=== PATIENT | female | born 1965 | race Caucasian/White ===

== ENCOUNTER 2017-02-06 20:09 | Emergency (ER) | payer MEDICAID ==
--- NOTE | 2017-02-06 21:14 | EDM.PDOC ---
[id number] 4d HEART ISSUES Time Seen by Provider: 02/06/17 21:00 Source of Information: Reports: Patient, EMS, Family History Limitations: Reports: No Limitations - History of Present Illness INITIAL COMMENTS - FREE TEXT/NARRATIVE: 51-year-old female with diabetes and known coronary disease has had an very stressful last 48 hours, her "best friend" suddenly yesterday, and her uncle was involved in a car accident today and was killed. Tonight she was feeling stressed out, has a long history of stress and PTSD and developed some right-sided chest discomfort. She took a nitroglycerin and 3 baby aspirins and it didn't help so she called the ambulance. EMS arrived and found her hyperventilating, anxious, and gave her a fourth aspirin and transferred her to the emergency room. An EKG in route was normal. She now has settled down and is feeling better. Continues to be tearful. She's also had some right-sided flank discomfort, some paresthesias the right leg and some pain with breathing. Onset: Gradual - Related Data Allergies Allergy/AdvReac Type Severity Reaction Status Date / Time acetaminophen [From Vicodin] Allergy Hives Verified 02/06/17 20:27 codeine Allergy Hives Verified 09/28/15 22:08 hydrocodone [From Vicodin] Allergy Hives Verified 02/06/17 20:27 hydromorphone Allergy Delusions Verified 02/06/17 20:27 lisinopril Allergy Swelling Verified 02/06/17 20:27 morphine Allergy Hives Verified 09/28/15 22:08 nystatin Allergy Hives Verified 09/28/15 22:08 ropinirole Allergy Pain Verified 09/28/15 22:08 simvastatin Allergy Hives Verified 09/28/15 22:08 Home Meds: Home Meds Albuterol [Proventil Neb Soln] 09/28/15 [History] Aspirin 09/28/15 [History] Azelastine [Optivar 0.05% Ophth Soln] 09/28/15 [History] Calcium Carbonate/Vitamin D3 [Calcium 600 + Vit D 400 Tablet] 09/28/15 [History ] Clopidogrel [Plavix] 09/28/15 [History] Ferrous Sulfate 09/28/15 [History] Fluconazole [Diflucan] 09/28/15 [History] Fluticasone Propionate [Flovent] 09/28/15 [History] Insulin Aspart [Novolog Flexpen] 09/28/15 [History] Insulin Glarg,Human.Rec.Analog [Lantus Solostar] 09/28/15 [History] Lisinopril 09/28/15 [History] Loratadine [Claritin] 09/28/15 [History] Metoprolol Succinate 09/28/15 [History] Multivit-Min/FA/Lycopene/Lut [Certavite Sr-Antioxidant Tab] 09/28/15 [History] Olopatadine [Patanol 0.1% Ophth Soln] 09/28/15 [History] Omeprazole 09/28/15 [History] Oseltamivir Phosphate [Tamiflu] 09/28/15 [History] Prazosin [Minpress] 09/28/15 [History] Primidone [Mysoline] 09/28/15 [History] Terbinafine [LamISIL AT 1% Crm] 09/28/15 [History] Vit D3 & K/Berberine HCl/Hops [Ostera] 09/28/15 [History] atorvaSTATin [Lipitor] 09/28/15 [History] metFORMIN [Glucophage] 09/28/15 [History] Past Medical History HEENT History: Reports: Sinusitis Cardiovascular History: Reports: CAD, Heart Murmur, High Cholesterol, Hypertension, NE, Other (See Below) Other Cardiovascular History: palpitations Respiratory History: Reports: Asthma, Sleep Apnea, Other (See Below) Other Respiratory History: dyspnea. c-pap Gastrointestinal History: Reports: GERD, Other (See Below) Other Gastrointestinal History: chronic right lower quad pain. chronic right upper quad pain Genitourinary History: Reports: Urinary Incontinence, UTI, Recurrent Musculoskeletal History: Reports: Back Pain, Chronic, Fibromyalgia, Neck Pain, Chronic, Osteoarthritis, Other (See Below) Other Musculoskeletal History: Left carpal tunnel syndrome. chronic pain. Ulnar neuropathy left elbow Neurological History: Reports: Neuropathy, Diabetic, TIA, Other (See Below) Other Neuro History: tremor essential Psychiatric History: Reports: Addiction, Anxiety, Depression, Panic Attack, PTSD Other Psychiatric History: agoraphobia. social phbia Endocrine/Metabolic History: Reports: Diabetes, Type II, Obesity/BMI 30+ Hematologic History: Reports: Iron Deficiency Dermatologic History: Reports: Psoriasis - Past Surgical History HEENT Surgical History: Reports: Adenoidectomy, Myringotomy w Tube(s), Polypectomy, Tonsillectomy Cardiovascular Surgical History: Reports: Coronary Artery Stent, Percutaneous Transluminal Angioplasty GI Surgical History: Reports: Appendectomy, Cholecystectomy Female Surgical History: Reports: Section, Tubal Ligation Musculoskeletal Surgical History: Reports: Arthroscopic Knee, Other (See Below) Other Musculoskeletal Surgeries/Procedures:: Carpal tunnel release Social & Family History - Tobacco Use Smoking Status *Q: Current Every Day Smoker Years of Tobacco use: 30 Packs/Tins Daily: 1 - Caffeine Use Caffeine Use: Reports: Soda - Recreational Drug Use Recreational Drug Use: Yes Recreational Drug Type: Reports: Marijuana/Hashish ED ROS GENERAL - Review of Systems Review Of Systems: See Below Constitutional: Denies: Fever, Chills Respiratory: Denies: Shortness of Breath Cardiovascular: Reports: Chest Pain GI/Abdominal: Reports: Abdominal Pain (Right sided, intermittent) Musculoskeletal: Reports: Back Pain Neurological: Reports: Paresthesia (Paresthesias of the lateral right leg and hip) Psychiatric: Reports: Anxiety, Depression ED EXAM, GENERAL - Physical Exam Exam: See Below Exam Limited By: No Limitations General Appearance: Alert, No Apparent Distress, Anxious Eye Exam: Bilateral Eye: EOMI, PERRL Throat/Mouth: Normal Inspection Respiratory/Chest: No Respiratory Distress, Lungs Clear, Other (Patient does have palpation tenderness of the right lateral chest) Cardiovascular: Regular Rate, Rhythm GI/Abdominal: Soft, Non-Tender Neurological: Alert, No Motor/Sensory Deficits Psychiatric: Anxious, Tearful Skin Exam: Warm, Dry Course - Vital Signs Last Recorded V/S: Last Vital Signs Temp 98.7 F 02/06/17 20:57 Pulse 89 02/06/17 21:21 Resp 22 H 02/06/17 21:21 BP 147/81 H 02/06/17 21:21 Pulse Ox 92 L 02/06/17 21:21 - Orders/Labs/Meds Labs: Laboratory Tests 02/06/17 02/06/17 02/06/17 Range/Units 21:11 21:11 21:18 WBC 12.6 H (4.5-11.0) K/uL RBC 5.26 (3.30-5.50) M/uL Hgb 16.0 H D (12.0-15.0) g/dL Hct 46.4 (36.0-48.0) % MCV 88 (80-98) fL MCH 30 (27-31) pg MCHC 35 (32-36) % Plt Count 335 (150-400) K/uL Neut % (Auto) 61 (36-66) % Lymph % (Auto) 26 (24-44) % Barbour % (Auto) 7 H (2-6) % Eos % (Auto) 5 H (2-4) % Baso % (Auto) 1 (0-1) % Sodium 138 L (140-148) mmol/L Potassium 3.9 (3.6-5.2) mmol/L Chloride 101 (100-108) mmol/L Carbon Dioxide 27 (21-32) mmol/L Anion Gap 13.9 (5.0-14.0) mmol/L BUN 11 (7-18) mg/dL Creatinine 0.7 (0.6-1.0) mg/dL Est Cr Clr Drug Dosing 93.57 mL/min Estimated GFR (MDRD) > 60 (>60) Glucose 283 H (74-106) mg/dL Calcium 9.6 (8.5-10.1) mg/dL Total Bilirubin 0.3 (0.2-1.0) mg/dL AST 16 (15-37) U/L ALT 39 (12-78) U/L Alkaline Phosphatase 76 (46-116) U/L Troponin I < 0.017 (0.000-0.056) ng/mL Total Protein 7.4 (6.4-8.2) g/dL Albumin 3.5 (3.4-5.0) g/dL Globulin 3.9 H (2.3-3.5) g/dL Albumin/Globulin Ratio 0.9 L (1.2-2.2) Urine Color Yellow Urine Appearance Slightly cloudy Urine pH 7.0 (4.5-8.0) Ur Specific Brenton 1.015 (1.008-1.030) Urine Protein Negative (NEGATIVE) mg/dL Urine Glucose (UA) 1000 H (NEGATIVE) mg/dL Urine Ketones Negative (NEGATIVE) mg/dL Urine Occult Blood Negative (NEGATIVE) Urine Nitrite Negative (NEGATIVE) Urine Bilirubin Negative (NEGATIVE) Urine Urobilinogen Normal (NORMAL) mg/dL Ur Leukocyte Esterase Negative (NEGATIVE) Urine RBC 0-5 (0-5) Urine WBC 0-5 (0-5) Ur Epithelial Cells Few Amorphous Sediment Moderate Urine Bacteria Many Urine Mucus Few Meds: Medications Discontinued Medications Generic Name Dose Route Start Last Admin Trade Name Rhina PRN Reason Stop Dose Admin Ibuprofen 600 mg 02/06/17 21:59 02/06/17 22:07 Motrin PO 02/06/17 22:00 600 mg ONETIME ONE Administration Ondansetron HCl 4 mg 02/06/17 21:59 02/06/17 22:06 Zofran Odt PO 02/06/17 22:00 4 mg ONETIME ONE Administration - Re-Assessments/Exams Free Text/Narrative Re-Assessment/Exam: 02/06/17 21:49 EKG done by EMS was reviewed and is normal. She is not having chest pain at this time. A CBC, CMP, UA, and troponin were obtained. Patient was observed on the monitor awaiting labs and was stable. 02/06/17 22:00 Cardiac monitoring remained stable. Troponin was 0. CBC was reassuring, complete chemistry profile was also normal other than a glucose of 280. She was asking for something for nausea and her headache, she was given 4 mg of sublingual Zofran and 600 mg of ibuprofen. She needs to continue her regular medications, left the grief and stress run its course and can return anytime if she feels she is worsening. Departure - Departure Time of Disposition: 22:12 Disposition: Home, Self-Care 01 Condition: Good Clinical Impression: Atypical chest pain, Anxiety - Discharge Information Instructions: Nonspecific Chest Pain, [id number] Referrals: PCP,None [Primary Care Provider] - Forms: ED Department Discharge Care Plan Goals: Continue your regular medications and allow the grief and stress run its course of possible. Return anytime if you feel you are worsening or need further evaluation.
[2017-02-06 21:22] VITALS: BP 147/81
[2017-02-06] MEDS ORDERED: Ondansetron 4 MG Tab.DIS PO ONE (21:59)
[2017-02-06] MEDS ORDERED: Ibuprofen 600 MG Tab PO ONE (21:59)
== END 2017-02-06 22:12 | disposition home or self-care (01) ==
LOC: JP.ED 20:09
DX: F41.9 Anxiety disorder, unspecified (principal); R07.89 Other chest pain; E11.9 Type 2 diabetes mellitus without complications; F17.210 Nicotine dependence, cigarettes, uncomplicated; I25.10 Atherosclerotic heart disease of native coronary artery without angina pectoris; E78.00 Pure hypercholesterolemia, unspecified; I10 Essential (primary) hypertension; J45.909 Unspecified asthma, uncomplicated; K21.9 Gastro-esophageal reflux disease without esophagitis; E11.40 Type 2 diabetes mellitus with diabetic neuropathy, unspecified; F32.9 Major depressive disorder, single episode, unspecified; E66.9 Obesity, unspecified; F43.10 Post-traumatic stress disorder, unspecified; Z90.49 Acquired absence of other specified parts of digestive tract; Z96.22 Myringotomy tube(s) status; Z95.5 Presence of coronary angioplasty implant and graft; Z98.51 Tubal ligation status; Z98.890 Other specified postprocedural states; Z79.4 Long term (current) use of insulin; Z79.84 Long term (current) use of oral hypoglycemic drugs; Z79.899 Other long term (current) drug therapy; Z88.5 Allergy status to narcotic agent; Z88.8 Allergy status to other drugs, medicaments and biological substances; Z88.6 Allergy status to analgesic agent
CPT/HCPCS: 36415; 80053; 81001; 84484; 85025; 99284; A9270; 99283

== ENCOUNTER 2017-03-26 16:15 | Emergency (ER) | payer MEDICAID ==
[2017-03-26] MEDS ORDERED: Cyclobenzaprine 10 MG Tab PO ONE (17:54)
[2017-03-26] MEDS ORDERED: Ketorolac 60 MG/2 ML SDV IM ONE (17:54)
--- NOTE | 2017-03-26 17:59 | EDM.PDOC ---
ED HPI GENERAL MEDICAL PROBLEM - General Chief Complaint: Back Pain or Injury Stated Complaint: LOWER/MID BACK PAIN Time Seen by Provider: 03/26/17 17:50 Source of Information: Reports: Patient, RN Notes Reviewed History Limitations: Reports: No Limitations - History of Present Illness INITIAL COMMENTS - FREE TEXT/NARRATIVE: 51-year-old female presents to the emergency department day complaint of mid back pain predominately on the right side she believes she injured herself about 2:00 this afternoon when she was lifting a box. She has no loss of bowel or bladder, states it hurts to take a deep breath but otherwise no difficulty breathing no chest pain Right Middle Back Pain Score (Numeric/FACES): 10 - Related Data Allergies Allergy/AdvReac Type Severity Reaction Status Date / Time acetaminophen [From Vicodin] Allergy Hives Verified 03/26/17 17:38 codeine Allergy Hives Verified 03/26/17 17:38 hydrocodone [From Vicodin] Allergy Hives Verified 03/26/17 17:38 lisinopril Allergy Swelling Verified 03/26/17 17:38 morphine Allergy Hives Verified 03/26/17 17:38 nystatin Allergy Hives Verified 03/26/17 17:38 ropinirole Allergy Pain Verified 03/26/17 17:38 simvastatin Allergy Hives Verified 03/26/17 17:38 hydromorphone AdvReac Delusions Verified 03/26/17 17:38 Home Meds: Home Meds Albuterol [Proventil Neb Soln] 09/28/15 [History] Aspirin 09/28/15 [History] Azelastine [Optivar 0.05% Ophth Soln] 09/28/15 [History] Calcium Carbonate/Vitamin D3 [Calcium 600 + Vit D 400 Tablet] 09/28/15 [History ] Clopidogrel [Plavix] 09/28/15 [History] Ferrous Sulfate 09/28/15 [History] Fluconazole [Diflucan] 09/28/15 [History] Fluticasone Propionate [Flovent] 09/28/15 [History] Insulin Aspart [Novolog Flexpen] 09/28/15 [History] Insulin Glarg,Human.Rec.Analog [Lantus Solostar] 09/28/15 [History] Lisinopril 09/28/15 [History] Loratadine [Claritin] 09/28/15 [History] Metoprolol Succinate 09/28/15 [History] Multivit-Min/FA/Lycopene/Lut [Certavite Sr-Antioxidant Tab] 09/28/15 [History] Olopatadine [Patanol 0.1% Ophth Soln] 09/28/15 [History] Omeprazole 09/28/15 [History] Oseltamivir Phosphate [Tamiflu] 09/28/15 [History] Prazosin [Minpress] 09/28/15 [History] Primidone [Mysoline] 09/28/15 [History] Terbinafine [LamISIL AT 1% Crm] 09/28/15 [History] Vit D3 & K/Berberine HCl/Hops [Ostera] 09/28/15 [History] atorvaSTATin [Lipitor] 09/28/15 [History] metFORMIN [Glucophage] 09/28/15 [History] Past Medical History HEENT History: Reports: Sinusitis Cardiovascular History: Reports: CAD, Heart Murmur, High Cholesterol, Hypertension, [place], Other (See Below) Other Cardiovascular History: palpitations Respiratory History: Reports: Asthma, Sleep Apnea, Other (See Below) Other Respiratory History: dyspnea. c-pap Gastrointestinal History: Reports: GERD, Other (See Below) Other Gastrointestinal History: chronic right lower quad pain. chronic right upper quad pain Genitourinary History: Reports: Urinary Incontinence, UTI, Recurrent Musculoskeletal History: Reports: Back Pain, Chronic, Fibromyalgia, Neck Pain, Chronic, Osteoarthritis, Other (See Below) Other Musculoskeletal History: Left carpal tunnel syndrome. chronic pain. Ulnar neuropathy left elbow Neurological History: Reports: Neuropathy, Diabetic, TIA, Other (See Below) Other Neuro History: tremor essential Psychiatric History: Reports: Addiction, Anxiety, Depression, Panic Attack, PTSD Other Psychiatric History: agoraphobia. social phbia Endocrine/Metabolic History: Reports: Diabetes, Type II, Obesity/BMI 30+ Hematologic History: Reports: Iron Deficiency Dermatologic History: Reports: Psoriasis - Past Surgical History HEENT Surgical History: Reports: Adenoidectomy, Myringotomy w Tube(s), Polypectomy, Tonsillectomy Cardiovascular Surgical History: Reports: Coronary Artery Stent, Percutaneous Transluminal Angioplasty GI Surgical History: Reports: Appendectomy, Cholecystectomy Female Surgical History: Reports: Section, Tubal Ligation Musculoskeletal Surgical History: Reports: Arthroscopic Knee, Other (See Below) Other Musculoskeletal Surgeries/Procedures:: Carpal tunnel release Social & Family History - Tobacco Use Smoking Status *Q: Unknown Ever Smoked Years of Tobacco use: 30 Packs/Tins Daily: 1 - Caffeine Use Caffeine Use: Reports: Soda - Recreational Drug Use Recreational Drug Use: Yes Recreational Drug Type: Reports: Marijuana/Hashish ED ROS GENERAL - Review of Systems Review Of Systems: See Below Constitutional: Reports: No Symptoms HEENT: Reports: No Symptoms Cardiovascular: Reports: No Symptoms Endocrine: Reports: No Symptoms GI/Abdominal: Reports: No Symptoms : Reports: No Symptoms Musculoskeletal: Reports: Back Pain ED EXAM, UPPER BACK/NECK PAIN - Physical Exam Exam: See Below Exam Limited By: No Limitations General Appearance: Alert, Mild Distress Head Exam: Atraumatic, Normocephalic Neck Exam: Non-Tender, Full Range of Motion, Normal Alignment, Normal Inspection Cardiovascular/Respiratory: No M/R/G, Normal Breath Sounds Back Exam: Normal Inspection, Decreased Range of Motion, Muscle Spasm, Paraspinal Tenderness. No: CVA Tenderness (R), CVA Tenderness (L), Vertebral Tenderness Course - Vital Signs Last Recorded V/S: Last Vital Signs Temp 97.7 F 03/26/17 17:33 Pulse 76 03/26/17 17:33 Resp 18 03/26/17 17:33 BP 148/76 H 03/26/17 17:33 Pulse Ox 98 03/26/17 17:33 - Orders/Labs/Meds Meds: Medications Discontinued Medications Generic Name Dose Route Start Last Admin Trade Name Freq PRN Reason Stop Dose Admin Cyclobenzaprine HCl 10 mg 03/26/17 17:54 03/26/17 18:16 Flexeril PO 03/26/17 17:55 10 mg ONETIME ONE Administration Ketorolac Tromethamine 60 mg 03/26/17 17:54 03/26/17 18:18 Toradol IM 03/26/17 17:55 60 mg ONETIME ONE Administration Departure - Departure Time of Disposition: 18:29 Disposition: Home, Self-Care 01 Condition: Good Clinical Impression: Thoracic back pain Qualifiers: Chronicity: acute Back pain laterality: right Qualified Code(s): M54.6 - Pain in thoracic spine - Discharge Information Referrals: Lorri Jj MD [Primary Care Provider] - Forms: ED Department Discharge Additional Instructions: use percocet as need for pain control with ibuprophen for baseline pain control , Please followup with your primary care provider in 3-5 days if not better, please call return to the emergency department with worsening of symptoms. - Assessment/Plan Plan: Assessment Acuity = acute Site and laterality = mid thoracic back pain right side Etiology = secondary to lifting injury Manifestations = none Location of injury = Home Lab values = none Plan She had good improvement combination Toradol and Flexeril, plan is to discharge home with flexeril 10 mg po tid, prn and percocet 5/325 one q6h prn # 10, f/u PCP in 3-5 days if not better Patient was in agreement with the plan all questions were answered, they were instructed to return to the emergency department or call for worsening symptoms. This note was dictated using [employer] voice recognition software please call with any questions.
[2017-03-26 18:51] VITALS: BP 144/87
== END 2017-03-26 18:53 | disposition home or self-care (01) ==
LOC: JP.ED 16:15
DX: M62.830 Muscle spasm of back (principal); I25.10 Atherosclerotic heart disease of native coronary artery without angina pectoris; E78.00 Pure hypercholesterolemia, unspecified; I10 Essential (primary) hypertension; I25.2 Old myocardial infarction; J45.909 Unspecified asthma, uncomplicated; K21.9 Gastro-esophageal reflux disease without esophagitis; E66.9 Obesity, unspecified; E11.9 Type 2 diabetes mellitus without complications; Z96.22 Myringotomy tube(s) status; Z88.6 Allergy status to analgesic agent; Z88.5 Allergy status to narcotic agent; Z88.8 Allergy status to other drugs, medicaments and biological substances; Z87.440 Personal history of urinary (tract) infections; Z86.73 Personal history of transient ischemic attack (TIA), and cerebral infarction without residual deficits; Z79.82 Long term (current) use of aspirin; Z79.899 Other long term (current) drug therapy; Z79.84 Long term (current) use of oral hypoglycemic drugs; Z79.4 Long term (current) use of insulin; Z90.49 Acquired absence of other specified parts of digestive tract
CPT/HCPCS: 96372; 99283; A9270; J1885

== ENCOUNTER 2017-04-06 01:50 | Emergency (ER) | payer MEDICAID ==
[2017-04-06 02:06] VITALS: BP 157/86
[2017-04-06] MEDS ORDERED: methylPREDNISolone Sodium Succinate 125 MG/2 ML SDV IM ONE (02:32)
--- NOTE | 2017-04-06 02:39 | EDM.PDOC ---
ED HPI GENERAL MEDICAL PROBLEM - General Chief Complaint: Back Pain or Injury Stated Complaint: STRAINED MUSCLE (BACK UP THROUGH NECK) Time Seen by Provider: 04/06/17 02:10 Source of Information: Reports: Patient History Limitations: Reports: No Limitations - History of Present Illness INITIAL COMMENTS - FREE TEXT/NARRATIVE: 51-year-old female with chronic back and neck pain was being followed by neurosurgery prior to moving to the area. She has spurs in her cervical spine that are causing chronic pain and periods of neuropathy. She also has low back pain and persistent paresthesias of the lateral right lower leg over the past 2 months. Over one week ago she felt a pop in her upper back and had significant pain, was treating it conservatively over the past week and was improving but a second reinjury today when lifting has caused her pain to be severe again. She arrives tearful, very uncomfortable but neurologically stable. She does have type 2 diabetes and takes insulin. No fevers or chills, no acute incontinence. Location: Reports: Neck, Back Quality: Reports: Burning, Sharp, Stabbing Severity: Moderate Associated Symptoms: Reports: Other (She has some pain that seems to radiate around the right chest wall to the upper abdomen). Denies: Fever/Chills, Headaches, Loss of Appetite, Shortness of Breath Back Pain Score (Numeric/FACES): 10 - Related Data Allergies Allergy/AdvReac Type Severity Reaction Status Date / Time acetaminophen [From Vicodin] Allergy Hives Verified 04/06/17 02:06 codeine Allergy Hives Verified 04/06/17 02:06 hydrocodone [From Vicodin] Allergy Hives Verified 04/06/17 02:06 lisinopril Allergy Swelling Verified 04/06/17 02:06 morphine Allergy Hives Verified 04/06/17 02:06 nystatin Allergy Hives Verified 04/06/17 02:06 ropinirole Allergy Pain Verified 04/06/17 02:06 simvastatin Allergy Hives Verified 04/06/17 02:06 hydromorphone AdvReac Delusions Verified 04/06/17 02:06 Home Meds: Home Meds Albuterol [Proventil Neb Soln] 09/28/15 [History] Aspirin 09/28/15 [History] Azelastine [Optivar 0.05% Ophth Soln] 09/28/15 [History] Calcium Carbonate/Vitamin D3 [Calcium 600 + Vit D 400 Tablet] 09/28/15 [History ] Clopidogrel [Plavix] 09/28/15 [History] Ferrous Sulfate 09/28/15 [History] Fluconazole [Diflucan] 09/28/15 [History] Fluticasone Propionate [Flovent] 09/28/15 [History] Insulin Aspart [Novolog Flexpen] 09/28/15 [History] Insulin Glarg,Human.Rec.Analog [Lantus Solostar] 09/28/15 [History] Lisinopril 09/28/15 [History] Loratadine [Claritin] 09/28/15 [History] Metoprolol Succinate 09/28/15 [History] Multivit-Min/FA/Lycopene/Lut [Certavite Sr-Antioxidant Tab] 09/28/15 [History] Olopatadine [Patanol 0.1% Ophth Soln] 09/28/15 [History] Omeprazole 09/28/15 [History] Oseltamivir Phosphate [Tamiflu] 09/28/15 [History] Prazosin [Minpress] 09/28/15 [History] Primidone [Mysoline] 09/28/15 [History] Terbinafine [LamISIL AT 1% Crm] 09/28/15 [History] Vit D3 & K/Berberine HCl/Hops [Ostera] 09/28/15 [History] atorvaSTATin [Lipitor] 09/28/15 [History] metFORMIN [Glucophage] 09/28/15 [History] Past Medical History HEENT History: Reports: Sinusitis Cardiovascular History: Reports: CAD, Heart Murmur, High Cholesterol, Hypertension, [place], Other (See Below) Other Cardiovascular History: palpitations Respiratory History: Reports: Asthma, Sleep Apnea, Other (See Below) Other Respiratory History: dyspnea. c-pap Gastrointestinal History: Reports: GERD, Other (See Below) Other Gastrointestinal History: chronic right lower quad pain. chronic right upper quad pain Genitourinary History: Reports: Urinary Incontinence, UTI, Recurrent Musculoskeletal History: Reports: Back Pain, Chronic, Fibromyalgia, Neck Pain, Chronic, Osteoarthritis, Other (See Below) Other Musculoskeletal History: Left carpal tunnel syndrome. chronic pain. Ulnar neuropathy left elbow Neurological History: Reports: Neuropathy, Diabetic, TIA, Other (See Below) Other Neuro History: tremor essential Psychiatric History: Reports: Addiction, Anxiety, Depression, Panic Attack, PTSD Other Psychiatric History: agoraphobia. social phbia Endocrine/Metabolic History: Reports: Diabetes, Type II, Obesity/BMI 30+ Hematologic History: Reports: Iron Deficiency Dermatologic History: Reports: Psoriasis - Past Surgical History HEENT Surgical History: Reports: Adenoidectomy, Myringotomy w Tube(s), Polypectomy, Tonsillectomy Cardiovascular Surgical History: Reports: Coronary Artery Stent, Percutaneous Transluminal Angioplasty GI Surgical History: Reports: Appendectomy, Cholecystectomy Female Surgical History: Reports: Section, Tubal Ligation Musculoskeletal Surgical History: Reports: Arthroscopic Knee, Other (See Below) Other Musculoskeletal Surgeries/Procedures:: Carpal tunnel release Social & Family History - Tobacco Use Smoking Status *Q: Current Every Day Smoker Years of Tobacco use: 25 Packs/Tins Daily: 1 - Caffeine Use Caffeine Use: Reports: Soda - Recreational Drug Use Recreational Drug Use: No Recreational Drug Type: Reports: Marijuana/Hashish ED ROS GENERAL - Review of Systems Review Of Systems: See Below Constitutional: Reports: Malaise. Denies: Fever, Chills HEENT: Reports: No Symptoms Respiratory: Denies: Shortness of Breath Cardiovascular: Denies: Chest Pain GI/Abdominal: Reports: Abdominal Pain (Right lateral chest and right upper abdomen radiating from her back) Musculoskeletal: Reports: Neck Pain, Back Pain Neurological: Reports: Paresthesia (She has persistent paresthesias of the right leg, also diffuse neuropathy). Denies: Headache ED EXAM, UPPER BACK/NECK PAIN - Physical Exam Exam: See Below Exam Limited By: No Limitations General Appearance: Alert, Mild Distress (Very uncomfortable, tearful) Head Exam: Atraumatic Neck Exam: Limited Range of Motion (Rotation of the neck causes increased pain, forward flexion also causes a pulling sensation in her neck), Paraspinous Muscle Tender (She is very tender to palpation along the paraspinous muscles especially the right lower cervical area and upper thoracic spine) GI/Abdominal: Non-Tender Back Exam: Paraspinal Tenderness (Paraspinal tenderness over the lumbar spine) Course - Vital Signs Last Recorded V/S: Last Vital Signs Temp 98.6 F 04/06/17 02:01 Pulse 78 04/06/17 02:01 Resp 20 04/06/17 02:01 BP 157/86 H 04/06/17 02:01 Pulse Ox 97 04/06/17 02:01 - Orders/Labs/Meds Meds: Medications Discontinued Medications Generic Name Dose Route Start Last Admin Trade Name Rhina PRVania Reason Stop Dose Admin Methylprednisolone Sodium Succinate 125 mg 04/06/17 02:32 04/06/17 02:37 Solu-Medrol IM 04/06/17 02:33 125 mg ONETIME ONE Administration - Re-Assessments/Exams Free Text/Narrative Re-Assessment/Exam: 04/06/17 02:38 Patient was given 125 mg of Solu-Medrol IM. She'll be continued on 50 mg of prednisone each morning for the next 5 days with her first meal, and I would like to have her consulted by orthopedics, Darius Ware hopefully this week. I' ll also supply her with 15 more oxycodone to help with her pain. She may need to increase her short acting insulin as she will likely have some elevation in her glucose levels with the steroids. I encouraged her to try to stay active and hopefully she will get a call tomorrow to get her worked in for a consultation. Departure - Departure Time of Disposition: 02:51 Disposition: Home, Self-Care 01 Condition: Fair Clinical Impression: Neck pain, bilateral Thoracic back pain Qualifiers: Chronicity: acute Back pain laterality: right Qualified Code(s): M54.6 - Pain in thoracic spine Peripheral neuropathy Qualifiers: Peripheral neuropathy type: polyneuropathy associated with underlying disease Qualified Code(s): G63 - Polyneuropathy in diseases classified elsewhere - Discharge Information Instructions: Back Pain, Adult, [id number] Referrals: Lorri Jj MD [Primary Care Provider] - Forms: ED Department Discharge Care Plan Goals: Take 5 pills of prednisone with your first meal each morning for the next 5 morning starting Thursday morning. You will be added to the consultation list for jenifer Rush here at [facility]. They should be contacting you for an appointment time. Continue anti-inflammatories and use oxycodone for extra pain control as prescribed.
== END 2017-04-06 02:51 | disposition home or self-care (01) ==
LOC: JP.ED 01:50
DX: M54.2 Cervicalgia (principal); M54.6 Pain in thoracic spine; G63 Polyneuropathy in diseases classified elsewhere; R20.2 Paresthesia of skin; I10 Essential (primary) hypertension; I25.2 Old myocardial infarction; I25.10 Atherosclerotic heart disease of native coronary artery without angina pectoris; J45.909 Unspecified asthma, uncomplicated; Z68.34 Body mass index [BMI] 34.0-34.9, adult; F41.0 Panic disorder [episodic paroxysmal anxiety]; F32.9 Major depressive disorder, single episode, unspecified; E11.40 Type 2 diabetes mellitus with diabetic neuropathy, unspecified; L40.9 Psoriasis, unspecified; E66.9 Obesity, unspecified; F17.210 Nicotine dependence, cigarettes, uncomplicated; Z86.73 Personal history of transient ischemic attack (TIA), and cerebral infarction without residual deficits; Z87.440 Personal history of urinary (tract) infections; Z96.22 Myringotomy tube(s) status; Z98.890 Other specified postprocedural states; Z95.5 Presence of coronary angioplasty implant and graft; Z98.51 Tubal ligation status; Z90.49 Acquired absence of other specified parts of digestive tract; Z79.82 Long term (current) use of aspirin; Z79.4 Long term (current) use of insulin; Z79.899 Other long term (current) drug therapy; Z88.5 Allergy status to narcotic agent; Z88.8 Allergy status to other drugs, medicaments and biological substances; Z88.6 Allergy status to analgesic agent; Z79.84 Long term (current) use of oral hypoglycemic drugs
CPT/HCPCS: 96372; 99283; J2930

== ENCOUNTER 2017-04-28 05:58 | Emergency (ER) | payer MEDICAID ==
[2017-04-28 06:20] VITALS: BP 143/80
--- NOTE | 2017-04-28 06:50 | EDM.PDOC ---
ED HPI GENERAL MEDICAL PROBLEM - General Chief Complaint: Cardiovascular Problem Stated Complaint: HEART FLUTTERING Time Seen by Provider: 04/28/17 06:25 Source of Information: Reports: Patient History Limitations: Reports: No Limitations - History of Present Illness INITIAL COMMENTS - FREE TEXT/NARRATIVE: pt has a fluttery sensation in her chest. She feels like when she had her last heart attack She states she felt this way ahead of her MO. She has not had chest pain or pressure. She was a little sweaty. She is a known diabetic. She has been very anxious about her uncles situation. 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 ) Location: Reports: Chest Quality: Reports: Other (Pt has no pain. ) Associated Symptoms: Reports: No Other Symptoms - Related Data Allergies Allergy/AdvReac Type Severity Reaction Status Date / Time acetaminophen [From Vicodin] Allergy Hives Verified 04/06/17 02:06 codeine Allergy Hives Verified 04/06/17 02:06 hydrocodone [From Vicodin] Allergy Hives Verified 04/06/17 02:06 lisinopril Allergy Swelling Verified 04/06/17 02:06 morphine Allergy Hives Verified 04/06/17 02:06 nystatin Allergy Hives Verified 04/06/17 02:06 ropinirole Allergy Pain Verified 04/06/17 02:06 simvastatin Allergy Hives Verified 04/06/17 02:06 hydromorphone AdvReac Delusions Verified 04/06/17 02:06 Home Meds: Home Meds Albuterol [Proventil Neb Soln] 09/28/15 [History] Aspirin 81 mg PO DAILY 09/28/15 [History] Azelastine [Optivar 0.05% Ophth Soln] 2 drop EYEBOTH BID 09/28/15 [History] Calcium Carbonate/Vitamin D3 [Calcium 600 + Vit D 400 Tablet] 1 tab PO DAILY 06/04 [History] Clopidogrel [Plavix] 75 mg PO DAILY 09/28/15 [History] Ferrous Sulfate 325 mg PO DAILY 09/28/15 [History] Insulin Aspart [Novolog Flexpen] 10 units SUBCNJ TID 09/28/15 [History] Loratadine [Claritin] 10 mg PO DAILY 09/28/15 [History] Multivit-Min/FA/Lycopene/Lut [Certavite Sr-Antioxidant Tab] 1 tab PO DAILY 09/27 [History] Olopatadine [Patanol 0.1% Ophth Soln] 2 drop EYEBOTH BID 09/28/15 [History] Omeprazole 20 mg PO DAILY 09/28/15 [History] Prazosin [Minpress] 1 mg PO ASDIRECTED 09/28/15 [History] Primidone [Mysoline] 50 mg PO DAILY 09/28/15 [History] Vit D3 & K/Berberine HCl/Hops [Ostera] 1 tab PO DAILY 09/28/15 [History] atorvaSTATin [Lipitor] 80 mg PO DAILY 09/28/15 [History] Albuterol Sulfate [Ventolin Hfa] 2 puff INH ASDIRECTED PRN 04/28/17 [History] Azelastine [Astelin Nasal Soln] 2 spray TAWANDA BID 04/28/17 [History] Ciprofloxacin [Ciprofloxacin HCl] 500 mg PO BID 04/28/17 [History] DULoxetine HCl [Duloxetine HCl] 30 mg PO DAILY 04/28/17 [History] Fluticasone Propionate [Flonase] 2 spray TAWANDA DAILY 04/28/17 [History] Insulin Degludec [Tresiba Flextouch U-200] 20 units SUBCNJ DAILY 04/28/17 [ History] Metoprolol Tartrate [Metoprolol Tartrate] 25 mg PO BID 04/28/17 [History] atorvaSTATin [Lipitor] 80 mg PO DAILY 04/28/17 [History] Past Medical History HEENT History: Reports: Sinusitis Cardiovascular History: Reports: CAD, Heart Murmur, High Cholesterol, Hypertension, [place], Other (See Below) Other Cardiovascular History: palpitations Respiratory History: Reports: Asthma, Sleep Apnea, Other (See Below) Other Respiratory History: dyspnea. c-pap Gastrointestinal History: Reports: GERD, Other (See Below) Other Gastrointestinal History: chronic right lower quad pain. chronic right upper quad pain Genitourinary History: Reports: Urinary Incontinence, UTI, Recurrent Musculoskeletal History: Reports: Back Pain, Chronic, Fibromyalgia, Neck Pain, Chronic, Osteoarthritis, Other (See Below) Other Musculoskeletal History: Left carpal tunnel syndrome. chronic pain. Ulnar neuropathy left elbow Neurological History: Reports: Neuropathy, Diabetic, TIA, Other (See Below) Other Neuro History: tremor essential Psychiatric History: Reports: Addiction, Anxiety, Depression, Panic Attack, PTSD Other Psychiatric History: agoraphobia. social phbia Endocrine/Metabolic History: Reports: Diabetes, Type II, Obesity/BMI 30+ Hematologic History: Reports: Iron Deficiency Dermatologic History: Reports: Psoriasis - Past Surgical History HEENT Surgical History: Reports: Adenoidectomy, Myringotomy w Tube(s), Polypectomy, Tonsillectomy Cardiovascular Surgical History: Reports: Coronary Artery Stent, Percutaneous Transluminal Angioplasty GI Surgical History: Reports: Appendectomy, Cholecystectomy Female Surgical History: Reports: Section, Tubal Ligation Musculoskeletal Surgical History: Reports: Arthroscopic Knee, Other (See Below) Other Musculoskeletal Surgeries/Procedures:: Carpal tunnel release Social & Family History - Tobacco Use Smoking Status *Q: Heavy Tobacco Smoker Years of Tobacco use: 40 Packs/Tins Daily: 1 - Caffeine Use Caffeine Use: Reports: Soda - Recreational Drug Use Recreational Drug Use: No Recreational Drug Type: Reports: Marijuana/Hashish ED ROS GENERAL - Review of Systems Review Of Systems: See Below Constitutional: Reports: No Symptoms HEENT: Reports: No Symptoms Respiratory: Reports: No Symptoms Cardiovascular: Reports: No Symptoms Endocrine: Reports: No Symptoms GI/Abdominal: Reports: No Symptoms : Reports: No Symptoms Musculoskeletal: Reports: No Symptoms Skin: Reports: No Symptoms ED EXAM, GENERAL - Physical Exam Exam: See Below Free Text/Narrative:: Pt arrived with a fluttry sensation in her chest. This happened prior to her having a MO. She is also feeling very stressed about her uncles sitution. i Exam Limited By: No Limitations General Appearance: Alert, Anxious, Mild Distress Ears: Normal TMs, Other (pt does wear bilateral hearing aids. ) Nose: Normal Inspection Throat/Mouth: Normal Inspection Head: Atraumatic Neck: Normal Inspection Respiratory/Chest: No Respiratory Distress Cardiovascular: Regular Rate, Rhythm GI/Abdominal: Soft, Non-Tender (Female) Exam: Deferred Rectal (Female) Exam: Deferred Back Exam: Normal Inspection Extremities: Normal Inspection, Other ( no sig edema. ) Neurological: Alert, Oriented, Normal Cognition Psychiatric: Anxious, Other (Pt is feeling quite anxious. ) Course - Vital Signs Last Recorded V/S: Last Vital Signs Temp 37 C 04/28/17 06:20 Pulse 85 04/28/17 06:20 Resp 16 1010/17 06:20 BP 143/80 H 04/28/17 06:20 Pulse Ox 96 04/28/17 06:20 - Orders/Labs/Meds Orders: Active Orders 24 hr Category Date Time Status EKG Documentation Completion [RC] ASDIRECTED Care 04/28/17 06:31 Active Chest 1V Frontal [CR] Stat Exams 04/28/17 06:54 Taken UA W/MICROSCOPIC [URIN] Urgent Lab 04/28/17 07:15 Ordered EKG 12 Lead [EK] Routine Ther 04/28/17 06:31 Ordered Labs: Laboratory Tests 04/28/17 04/28/17 04/28/17 Range/Units 06:29 06:29 06:29 WBC 11.0 (4.5-11.0) K/uL RBC 5.18 (3.30-5.50) M/uL Hgb 16.2 H (12.0-15.0) g/dL Hct 46.3 (36.0-48.0) % MCV 89 (80-98) fL MCH 31 (27-31) pg MCHC 35 (32-36) % Plt Count 272 (150-400) K/uL Neut % (Auto) 58 (36-66) % Lymph % (Auto) 26 (24-44) % Roane % (Auto) 9 H (2-6) % Eos % (Auto) 6 H (2-4) % Baso % (Auto) 1 (0-1) % Sodium 132 L (140-148) mmol/L Potassium 3.7 (3.6-5.2) mmol/L Chloride 97 L (100-108) mmol/L Carbon Dioxide 27 (21-32) mmol/L Anion Gap 11.7 (5.0-14.0) mmol/L BUN 11 (7-18) mg/dL Creatinine 0.7 (0.6-1.0) mg/dL Est Cr Clr Drug Dosing 93.57 mL/min Estimated GFR (MDRD) > 60 (>60) Glucose 266 H (74-106) mg/dL Calcium 8.9 (8.5-10.1) mg/dL Total Bilirubin 0.5 D (0.2-1.0) mg/dL AST 12 L (15-37) U/L ALT 30 (12-78) U/L Alkaline Phosphatase 70 (46-116) U/L Troponin I < 0.017 (0.000-0.056) ng/mL NT-Pro-B Natriuret Pep (5-125) pg/mL Total Protein 7.1 (6.4-8.2) g/dL Albumin 3.6 (3.4-5.0) g/dL Globulin 3.5 (2.3-3.5) g/dL Albumin/Globulin Ratio 1.0 L (1.2-2.2) 04/28/17 Range/Units 06:55 WBC (4.5-11.0) K/uL RBC (3.30-5.50) M/uL Hgb (12.0-15.0) g/dL Hct (36.0-48.0) % MCV (80-98) fL MCH (27-31) pg MCHC (32-36) % Plt Count (150-400) K/uL Neut % (Auto) (36-66) % Lymph % (Auto) (24-44) % Roane % (Auto) (2-6) % Eos % (Auto) (2-4) % Baso % (Auto) (0-1) % Sodium (140-148) mmol/L Potassium (3.6-5.2) mmol/L Chloride (100-108) mmol/L Carbon Dioxide (21-32) mmol/L Anion Gap (5.0-14.0) mmol/L BUN (7-18) mg/dL Creatinine (0.6-1.0) mg/dL Est Cr Clr Drug Dosing mL/min Estimated GFR (MDRD) (>60) Glucose (74-106) mg/dL Calcium (8.5-10.1) mg/dL Total Bilirubin (0.2-1.0) mg/dL AST (15-37) U/L ALT (12-78) U/L Alkaline Phosphatase (46-116) U/L Troponin I (0.000-0.056) ng/mL NT-Pro-B Natriuret Pep 18 (5-125) pg/mL Total Protein (6.4-8.2) g/dL Albumin (3.4-5.0) g/dL Globulin (2.3-3.5) g/dL Albumin/Globulin Ratio (1.2-2.2) - Re-Assessments/Exams Free Text/Narrative Re-Assessment/Exam: 04/28/17 06:54 pt has a normal looking ekg. She is not rapid-- rate is 80. Pt had a normal ekg and her trop is neg. His bs is 266. 04/28/17 07:05 04/28/17 07:07 04/28/17 07:17 pt was found to have a neg trop. Her ekg looked good and her chest xray is unchanged. Her bs was 266. Departure - Departure Time of Disposition: :18 Disposition: Home, Self-Care 01 Condition: Fair Clinical Impression: Stress due to family tension, Hyperglycemia Referrals: Marc Ruiz MD [Primary Care Provider] - Forms: ED Department Discharge Care Plan Goals: llabs were normal-- I feel the fluttery sensation is related to stress with her uncle. Pt is to return if further symptoms. - My Orders Last 24 Hours: My Active Orders 04/28/17 06:31 EKG Documentation Completion [RC] ASDIRECTED EKG 12 Lead [EK] Routine 04/28/17 06:54 Chest 1V Frontal [CR] Stat 04/28/17 07:15 UA W/MICROSCOPIC [URIN] Urgent - Assessment/Plan Last 24 Hours: My Active Orders 04/28/17 06:31 EKG Documentation Completion [RC] ASDIRECTED EKG 12 Lead [EK] Routine 04/28/17 06:54 Chest 1V Frontal [CR] Stat 04/28/17 07:15 UA W/MICROSCOPIC [URIN] Urgent
--- NOTE | 2017-04-28 08:50 | CR ---
Chest 1V Frontal FINDINGS: The heart and vascular structures are normal in appearance. No infiltrates or effusions are demonstrated. There is a calcified granuloma in the left lung base. The skeletal structures are unre markable. IMPRESSION: 1. No acute findings..
== END 2017-04-28 08:01 | disposition home or self-care (01) ==
LOC: JP.ED 05:58
DX: E11.65 Type 2 diabetes mellitus with hyperglycemia (principal); Z63.9 Problem related to primary support group, unspecified; F17.210 Nicotine dependence, cigarettes, uncomplicated; I10 Essential (primary) hypertension; I25.2 Old myocardial infarction; I25.10 Atherosclerotic heart disease of native coronary artery without angina pectoris; E78.00 Pure hypercholesterolemia, unspecified; J45.909 Unspecified asthma, uncomplicated; G47.30 Sleep apnea, unspecified; K21.9 Gastro-esophageal reflux disease without esophagitis; F41.0 Panic disorder [episodic paroxysmal anxiety]; F32.9 Major depressive disorder, single episode, unspecified; E66.9 Obesity, unspecified; L40.9 Psoriasis, unspecified; Z96.22 Myringotomy tube(s) status; Z95.5 Presence of coronary angioplasty implant and graft; Z98.890 Other specified postprocedural states; Z90.49 Acquired absence of other specified parts of digestive tract; Z98.51 Tubal ligation status; Z79.4 Long term (current) use of insulin; Z79.899 Other long term (current) drug therapy; Z79.82 Long term (current) use of aspirin; Z88.5 Allergy status to narcotic agent; Z88.6 Allergy status to analgesic agent; Z88.8 Allergy status to other drugs, medicaments and biological substances
CPT/HCPCS: 36415; 71010; 71010-26; 80053; 81001; 83880; 84484; 85025; 93005; 99285-25

== ENCOUNTER 2017-05-26 19:24 | Emergency (ER) | payer MEDICAID ==
[2017-05-26 19:41] VITALS: BP 158/82
--- NOTE | 2017-05-26 20:13 | EDM.PDOC ---
ED HPI GENERAL MEDICAL PROBLEM - General Chief Complaint: ENT Problem Stated Complaint: THROAT / EAR PAIN, VOMITING Time Seen by Provider: 05/26/17 20:11 Source of Information: Reports: Patient, Family - History of Present Illness INITIAL COMMENTS - FREE TEXT/NARRATIVE: pt arrived with pain the glands on the rt side of her neck. She is coughing. She does not have a fever. Onset: Gradual Duration: Day(s): Location: Reports: Neck Associated Symptoms: Reports: No Other Symptoms sore throat Pain Score (Numeric/FACES): 8 - Related Data Allergies Allergy/AdvReac Type Severity Reaction Status Date / Time acetaminophen [From Vicodin] Allergy Hives Verified 05/26/17 19:46 codeine Allergy Hives Verified 05/26/17 19:46 hydrocodone [From Vicodin] Allergy Hives Verified 05/26/17 19:46 lisinopril Allergy Swelling Verified 05/26/17 19:46 morphine Allergy Hives Verified 05/26/17 19:46 nystatin Allergy Hives Verified 05/26/17 19:46 ropinirole Allergy Pain Verified 05/26/17 19:46 simvastatin Allergy Hives Verified 05/26/17 19:46 hydromorphone AdvReac Delusions Verified 05/26/17 19:46 Home Meds: Home Meds Albuterol [Proventil Neb Soln] 09/28/15 [History] Aspirin 81 mg PO DAILY 09/28/15 [History] Azelastine [Optivar 0.05% Ophth Soln] 2 drop EYEBOTH BID 09/28/15 [History] Calcium Carbonate/Vitamin D3 [Calcium 600 + Vit D 400 Tablet] 1 tab PO DAILY 06/04 [History] Clopidogrel [Plavix] 75 mg PO DAILY 09/28/15 [History] Ferrous Sulfate 325 mg PO DAILY 09/28/15 [History] Insulin Aspart [Novolog Flexpen] 10 units SUBCNJ TID 09/28/15 [History] Loratadine [Claritin] 10 mg PO DAILY 09/28/15 [History] Multivit-Min/FA/Lycopene/Lut [Certavite Sr-Antioxidant Tab] 1 tab PO DAILY 09/27 [History] Olopatadine [Patanol 0.1% Ophth Soln] 2 drop EYEBOTH BID 09/28/15 [History] Omeprazole 20 mg PO DAILY 09/28/15 [History] Prazosin [Minpress] 1 mg PO ASDIRECTED 09/28/15 [History] Primidone [Mysoline] 50 mg PO DAILY 09/28/15 [History] Vit D3 & K/Berberine HCl/Hops [Ostera] 1 tab PO DAILY 09/28/15 [History] atorvaSTATin [Lipitor] 80 mg PO DAILY 09/28/15 [History] Albuterol Sulfate [Ventolin Hfa] 2 puff INH ASDIRECTED PRN 04/28/17 [History] Azelastine [Astelin Nasal Soln] 2 spray TAWANDA BID 04/28/17 [History] Ciprofloxacin [Ciprofloxacin HCl] 500 mg PO BID 04/28/17 [History] DULoxetine HCl [Duloxetine HCl] 30 mg PO DAILY 04/28/17 [History] Fluticasone Propionate [Flonase] 2 spray TAWANDA DAILY 04/28/17 [History] Insulin Degludec [Tresiba Flextouch U-200] 20 units SUBCNJ DAILY 04/28/17 [ History] Metoprolol Tartrate [Metoprolol Tartrate] 25 mg PO BID 04/28/17 [History] atorvaSTATin [Lipitor] 80 mg PO DAILY 04/28/17 [History] Past Medical History HEENT History: Reports: Hard of Hearing, Impaired Vision, Sinusitis, Other (See Below) Other HEENT History: bilateral hearing aides Cardiovascular History: Reports: CAD, High Cholesterol, Hypertension, [place], Other (See Below) Other Cardiovascular History: palpitations Respiratory History: Reports: Asthma, Sleep Apnea, Other (See Below) Other Respiratory History: dyspnea. c-pap Gastrointestinal History: Reports: GERD, Other (See Below) Other Gastrointestinal History: chronic right lower quad pain. 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 chronic pain. Ulnar neuropathy left and right elbow Neurological History: Reports: Neuropathy, Diabetic, TIA, Other (See Below) Other Neuro History: tremor essential Psychiatric History: Reports: Addiction, Anxiety, Depression, Panic Attack, PTSD Other Psychiatric History: agoraphobia. social phobia Endocrine/Metabolic History: Reports: Diabetes, Type II, Obesity/BMI 30+ Hematologic History: Reports: Iron Deficiency Dermatologic History: Reports: Psoriasis - Infectious Disease History Infectious Disease History: Reports: Chicken Pox, Shingles - Past Surgical History HEENT Surgical History: Reports: Adenoidectomy, Myringotomy w Tube(s), Polypectomy, Tonsillectomy Cardiovascular Surgical History: Reports: Coronary Artery Stent, Percutaneous Transluminal Angioplasty, Other (See Below) Other Cardiovascular Surgeries/Procedures: x2 cardiac stents GI Surgical History: Reports: Appendectomy, Cholecystectomy Female Surgical History: Reports: Section, Tubal Ligation, Other ( See Below) Other Female Surgeries/Procedures: Ovarian cysts Musculoskeletal Surgical History: Reports: Arthroscopic Knee, Carpal Tunnel, Other (See Below) Other Musculoskeletal Surgeries/Procedures:: Carpal tunnel release Social & Family History - Tobacco Use Smoking Status *Q: Current Every Day Smoker Years of Tobacco use: 30 Packs/Tins Daily: 1 - Caffeine Use Caffeine Use: Reports: Coffee - Recreational Drug Use Recreational Drug Use: No Recreational Drug Type: Reports: Marijuana/Hashish ED ROS ENT - Review of Systems Review Of Systems: See Below Constitutional: Reports: No Symptoms HEENT: Reports: Ear Pain, Other (pt has a tube in her left ear and she has pain in the gland in the ant cervical chain on the rt. ) Respiratory: Reports: No Symptoms Cardiovascular: Reports: No Symptoms Endocrine: Reports: No Symptoms GI/Abdominal: Reports: No Symptoms : Reports: No Symptoms Musculoskeletal: Reports: No Symptoms Skin: Reports: No Symptoms ED EXAM, ENT - Physical Exam Exam: See Below Text/Narrative:: pt has pain in the rt ear ansd glandular swelling in the glands under the ear. Exam Limited By: No Limitations General Appearance: Alert, Anxious, Mild Distress Ears: Other (pt has a tube in the rt ear. The drum looks slightly dull but not red. He is very swollen under the rt ear. ) Nose: Normal Inspection Mouth/Throat: Other ( alot of glandular swelling on the rt. ) Head: Atraumatic Neck: Lymphadenopathy (R) Respiratory/Chest: No Respiratory Distress Cardiovascular: Regular Rate, Rhythm GI/Abdominal: Soft, Non-Tender Course - Vital Signs Last Recorded V/S: Last Vital Signs Temp 36.8 C 05/26/17 19:39 Pulse 78 05/26/17 19:39 Resp 15 11/07/17 19:39 BP 158/82 H 05/26/17 19:39 Pulse Ox 95 05/26/17 19:39 - Orders/Labs/Meds Orders: Active Orders 24 hr Category Date Time Status CULTURE STREP A CONFIRMATION [RM] Stat Lab 05/26/17 20:14 Results STREP SCRN A RAPID W CULT CONF [RM] Stat Lab 05/26/17 20:14 Results Labs: Laboratory Tests 05/26/17 Range/Units 20:32 WBC 13.9 H (4.5-11.0) K/uL RBC 5.15 (3.30-5.50) M/uL Hgb 15.6 H (12.0-15.0) g/dL Hct 46.5 (36.0-48.0) % MCV 90 (80-98) fL MCH 30 (27-31) pg MCHC 34 (32-36) % Plt Count 272 (150-400) K/uL Neut % (Auto) 64 (36-66) % Lymph % (Auto) 22 L (24-44) % [place] % (Auto) 9 H (2-6) % Eos % (Auto) 5 H (2-4) % Baso % (Auto) 1 (0-1) % - Re-Assessments/Exams Free Text/Narrative Re-Assessment/Exam: 05/26/17 21:00 pt had a neg influ and a neg strept. sHe has a wbc of 13,000. Departure - Departure Time of Disposition: 21:01 Disposition: Home, Self-Care 01 Condition: Fair Clinical Impression: Otitis media - Discharge Information Referrals: Ananth Greer MACH[employer] ENGRAVER [Primary Care Provider] - Forms: ED Department Discharge Care Plan Goals: augmentin 875 1 tab po bid, diflucan 100mg now and repeat in 5 days. keep up coming appt with Ananth Basurto - My Orders Last 24 Hours: My Active Orders 05/26/17 20:14 CULTURE STREP A CONFIRMATION [RM] Stat STREP SCRN A RAPID W CULT CONF [RM] Stat - Assessment/Plan Last 24 Hours: My Active Orders 05/26/17 20:14 CULTURE STREP A CONFIRMATION [RM] Stat STREP SCRN A RAPID W CULT CONF [RM] Stat
== END 2017-05-26 21:14 | disposition home or self-care (01) ==
LOC: JP.ED 19:24
DX: H66.90 Otitis media, unspecified, unspecified ear (principal); I10 Essential (primary) hypertension; I25.10 Atherosclerotic heart disease of native coronary artery without angina pectoris; E78.00 Pure hypercholesterolemia, unspecified; J45.909 Unspecified asthma, uncomplicated; G47.30 Sleep apnea, unspecified; K21.9 Gastro-esophageal reflux disease without esophagitis; E11.42 Type 2 diabetes mellitus with diabetic polyneuropathy; F41.0 Panic disorder [episodic paroxysmal anxiety]; F32.9 Major depressive disorder, single episode, unspecified; F17.210 Nicotine dependence, cigarettes, uncomplicated; Z96.22 Myringotomy tube(s) status; Z95.5 Presence of coronary angioplasty implant and graft; Z79.02 Long term (current) use of antithrombotics/antiplatelets; Z79.82 Long term (current) use of aspirin; Z79.4 Long term (current) use of insulin; Z88.5 Allergy status to narcotic agent; Z88.6 Allergy status to analgesic agent; Z88.8 Allergy status to other drugs, medicaments and biological substances
CPT/HCPCS: 36415; 85025; 87081; 87430; 87804; 99283

== ENCOUNTER 2017-07-03 15:42 | Emergency (ER) | payer MEDICAID ==
--- NOTE | 2017-07-03 16:31 | EDM.PDOC ---
ED HPI GENERAL MEDICAL PROBLEM - General Chief Complaint: General Stated Complaint: SLURRED SPEECH,HIGH BLOOD SUGAR Time Seen by Provider: 07/03/17 16:18 Source of Information: Reports: Patient, Provider, RN Notes Reviewed History Limitations: Reports: No Limitations - History of Present Illness INITIAL COMMENTS - FREE TEXT/NARRATIVE: 51-year-old female presents to emergency department today for complaint of difficulty speaking, she was at her psychiatric appointment today when the provider noticed she had slurred speech recommended she presents emergency department for further evaluation, she states she did not notice this until it was pointed out to her. She thinks it's been going on most of the day. Denies any other symptoms Headache Pain Score (Numeric/FACES): 2 - Related Data Allergies Allergy/AdvReac Type Severity Reaction Status Date / Time acetaminophen [From Vicodin] Allergy Hives Verified 05/26/17 19:46 codeine Allergy Hives Verified 05/26/17 19:46 hydrocodone [From Vicodin] Allergy Hives Verified 05/26/17 19:46 lisinopril Allergy Swelling Verified 05/26/17 19:46 morphine Allergy Hives Verified 05/26/17 19:46 nystatin Allergy Hives Verified 05/26/17 19:46 ropinirole Allergy Pain Verified 05/26/17 19:46 simvastatin Allergy Hives Verified 05/26/17 19:46 hydromorphone AdvReac Delusions Verified 05/26/17 19:46 Home Meds: Home Meds Albuterol [Proventil Neb Soln] 09/28/15 [History] Aspirin 81 mg PO DAILY 09/28/15 [History] Calcium Carbonate/Vitamin D3 [Calcium 600 + Vit D 400 Tablet] 1 tab PO DAILY 06/04 [History] Clopidogrel [Plavix] 75 mg PO DAILY 09/28/15 [History] Ferrous Sulfate 325 mg PO DAILY 09/28/15 [History] Insulin Aspart [Novolog Flexpen] 4 units SUBCNJ ASDIRECTED 09/28/15 [History] Loratadine [Claritin] 10 mg PO DAILY 09/28/15 [History] Multivit-Min/FA/Lycopene/Lut [Certavite Sr-Antioxidant Tab] 1 tab PO DAILY 09/27 [History] Olopatadine [Patanol 0.1% Ophth Soln] 2 drop EYEBOTH BID 09/28/15 [History] Omeprazole 20 mg PO DAILY 09/28/15 [History] Prazosin [Minpress] 1 mg PO ASDIRECTED 09/28/15 [History] Primidone [Mysoline] 50 mg PO DAILY 09/28/15 [History] Vit D3 & K/Berberine HCl/Hops [Ostera] 1 tab PO DAILY 09/28/15 [History] Albuterol Sulfate [Ventolin Hfa] 2 puff INH ASDIRECTED PRN 04/28/17 [History] Azelastine [Astelin Nasal Soln] 2 spray TAWANDA BID 04/28/17 [History] Fluticasone Propionate [Flonase] 2 spray TAWANDA DAILY 04/28/17 [History] Insulin Degludec [Tresiba Flextouch U-200] 28 units SUBCNJ BEDTIME 04/28/17 [ History] Metoprolol Tartrate [Metoprolol Tartrate] 25 mg PO BID 04/28/17 [History] atorvaSTATin [Lipitor] 80 mg PO DAILY 04/28/17 [History] Cyclobenzaprine [Flexeril] 10 mg PO BEDTIME 07/03/17 [History] LORazepam [Ativan] 0.5 mg PO BEDTIME PRN 07/03/17 [History] Ofloxacin [Floxin 0.3% Otic Soln] 4 drop EARBOTH BID PRN 07/03/17 [History] Psyllium with Sucrose [Metamucil] 1 pack PO Q48H 07/03/17 [History] Sertraline [Zoloft] 100 mg PO DAILY 07/03/17 [History] Past Medical History HEENT History: Reports: Hard of Hearing, Impaired Vision, Sinusitis, Other (See Below) Other HEENT History: bilateral hearing aides Cardiovascular History: Reports: CAD, High Cholesterol, Hypertension, [place], Other (See Below) Other Cardiovascular History: palpitations Respiratory History: Reports: Asthma, Sleep Apnea, Other (See Below) Other Respiratory History: dyspnea. c-pap Gastrointestinal History: Reports: GERD, Other (See Below) Other Gastrointestinal History: chronic right lower quad pain. 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 chronic pain. Ulnar neuropathy left and right elbow Neurological History: Reports: Neuropathy, Diabetic, TIA, Other (See Below) Other Neuro History: tremor essential Psychiatric History: Reports: Addiction, Anxiety, Depression, Panic Attack, PTSD Other Psychiatric History: agoraphobia. social phobia Endocrine/Metabolic History: Reports: Diabetes, Type II, Obesity/BMI 30+ Hematologic History: Reports: Iron Deficiency Dermatologic History: Reports: Psoriasis - Infectious Disease History Infectious Disease History: Reports: Chicken Pox, Shingles - Past Surgical History HEENT Surgical History: Reports: Adenoidectomy, Myringotomy w Tube(s), Polypectomy, Tonsillectomy Cardiovascular Surgical History: Reports: Coronary Artery Stent, Percutaneous Transluminal Angioplasty, Other (See Below) Other Cardiovascular Surgeries/Procedures: x2 cardiac stents GI Surgical History: Reports: Appendectomy, Cholecystectomy Female Surgical History: Reports: Section, Tubal Ligation, Other ( See Below) Other Female Surgeries/Procedures: Ovarian cysts Musculoskeletal Surgical History: Reports: Arthroscopic Knee, Carpal Tunnel, Other (See Below) Other Musculoskeletal Surgeries/Procedures:: Carpal tunnel release Social & Family History - Tobacco Use Smoking Status *Q: Heavy Tobacco Smoker Years of Tobacco use: 30 Packs/Tins Daily: 1 - Caffeine Use Caffeine Use: Reports: Coffee, Soda - Recreational Drug Use Recreational Drug Use: No Recreational Drug Type: Reports: Marijuana/Hashish ED ROS GENERAL - Review of Systems Review Of Systems: See Below Constitutional: Reports: No Symptoms HEENT: Reports: No Symptoms Respiratory: Reports: No Symptoms Cardiovascular: Reports: No Symptoms GI/Abdominal: Reports: No Symptoms : Reports: No Symptoms Musculoskeletal: Reports: No Symptoms Skin: Reports: No Symptoms Neurological: Reports: Difficulty Walking, Change in Speech ED EXAM, GENERAL - Physical Exam Exam: See Below Free Text/Narrative:: General: Female, not in any distress, alert and oriented x3 HEENT: head is atraumatic normocephalic, eyes pupils equal round reactive to light, sclera clear no conjunctivitis appreciated, extraocular eye movements intact. Ears hearing aids in place bilaterally. Nose no septal deviation, nares are clear, no blood present. Mouth mucosa is moist and pink no erythema or exudate noted in soft palate, tongue is midline uvula is midline, dentition is intact. Neck: Supple no thyromegaly no tracheal deviation. Nodes: Cervical nodes subclavicular nodes nontender no palpable lymphadenopathy noted. Lungs: clear to auscultation bilaterally with symmetrical respirations, no adventitious noise appreciated. CV: Regular rate and rhythm S1 and S2 appreciated no murmurs rubs or gallops noted. Abdomen: Soft, nontender, no palpable masses or organomegaly appreciated, no distention no guarding bowel sounds are present, . Neuro: Cranial nerves II through XII grossly intact, power is 5 out 5 in upper and lower extremities, patellar reflex, biceps reflex +2 can do finger to nose without difficulty no dysdiadochokinesis no difficulty with rapid alternating movements can do [id number] without difficulty Romberg is negative, has adequate gait can , toe walk and heel walk no cerebellar dysfunction no focal neurologic deficit Skin: Warm and dry, intact Extremities: No lower extremity edema appreciated, Course - Vital Signs Last Recorded V/S: Last Vital Signs Temp 97.4 F 07/03/17 16:11 Pulse 76 07/03/17 18:00 Resp 21 H 07/03/17 18:00 BP 136/71 07/03/17 18:00 Pulse Ox 92 L 07/03/17 18:00 - Orders/Labs/Meds Orders: Active Orders 24 hr Category Date Time Status EKG Documentation Completion [RC] ASDIRECTED Care 07/03/17 16:27 Active EKG 12 Lead [EK] Stat Ther 07/03/17 16:27 Ordered Labs: Laboratory Tests 07/03/17 07/03/17 07/03/17 Range/Units 16:26 16:27 16:27 WBC 11.3 H (4.5-11.0) K/uL RBC 5.28 (3.30-5.50) M/uL Hgb 16.1 H (12.0-15.0) g/dL Hct 46.4 (36.0-48.0) % MCV 88 (80-98) fL MCH 31 (27-31) pg MCHC 35 (32-36) % Plt Count 286 (150-400) K/uL Neut % (Auto) 59 (36-66) % Lymph % (Auto) 25 (24-44) % [place] % (Auto) 8 H (2-6) % Eos % (Auto) 6 H (2-4) % Baso % (Auto) 1 (0-1) % Sodium 137 L (140-148) mmol/L Potassium 3.8 (3.6-5.2) mmol/L Chloride 100 (100-108) mmol/L Carbon Dioxide 25 (21-32) mmol/L Anion Gap 15.8 H (5.0-14.0) mmol/L BUN 9 (7-18) mg/dL Creatinine 0.6 (0.6-1.0) mg/dL Est Cr Clr Drug Dosing 107.87 mL/min Estimated GFR (MDRD) > 60 (>60) Glucose 348 H (74-106) mg/dL Calcium 9.0 (8.5-10.1) mg/dL Total Bilirubin 0.3 (0.2-1.0) mg/dL AST 11 L (15-37) U/L ALT 34 (12-78) U/L Alkaline Phosphatase 87 (46-116) U/L Total Protein 6.9 (6.4-8.2) g/dL Albumin 3.6 (3.4-5.0) g/dL Globulin 3.3 (2.3-3.5) g/dL Albumin/Globulin Ratio 1.1 L (1.2-2.2) Urine Color Urine Appearance Urine pH (4.5-8.0) Ur Specific [place] (1.008-1.030) Urine Protein (NEGATIVE) mg/dL Urine Glucose (UA) (NEGATIVE) mg/dL Urine Ketones (NEGATIVE) mg/dL Urine Occult Blood (NEGATIVE) Urine Nitrite (NEGATIVE) Urine Bilirubin (NEGATIVE) Urine Urobilinogen (NORMAL) mg/dL Ur Leukocyte Esterase (NEGATIVE) Urine RBC (0-5) Urine WBC (0-5) Ur Epithelial Cells Amorphous Sediment Urine Bacteria Urine Mucus Urine Opiates Screen (NEGATIVE) Ur Oxycodone Screen (NEGATIVE) Urine Methadone Screen (NEGATIVE) Ur Propoxyphene Screen (NEGATIVE) Ur Barbiturates Screen (NEGATIVE) Ur Tricyclics Screen (NEGATIVE) Ur Phencyclidine Scrn (NEGATIVE) Ur Amphetamine Screen (NEGATIVE) U Methamphetamines Scrn (NEGATIVE) Urine MDMA Screen (NEGATIVE) U Benzodiazepines Scrn (NEGATIVE) U Cocaine Metab Screen (NEGATIVE) U Marijuana (THC) Screen (NEGATIVE) Ethyl Alcohol < 3 mg/dL 12/15/17 12/15/17 Range/Units 16:35 16:35 WBC (4.5-11.0) K/uL RBC (3.30-5.50) M/uL Hgb (12.0-15.0) g/dL Hct (36.0-48.0) % MCV (80-98) fL MCH (27-31) pg MCHC (32-36) % Plt Count (150-400) K/uL Neut % (Auto) (36-66) % Lymph % (Auto) (24-44) % [place] % (Auto) (2-6) % Eos % (Auto) (2-4) % Baso % (Auto) (0-1) % Sodium (140-148) mmol/L Potassium (3.6-5.2) mmol/L Chloride (100-108) mmol/L Carbon Dioxide (21-32) mmol/L Anion Gap (5.0-14.0) mmol/L BUN (7-18) mg/dL Creatinine (0.6-1.0) mg/dL Est Cr Clr Drug Dosing mL/min Estimated GFR (MDRD) (>60) Glucose (74-106) mg/dL Calcium (8.5-10.1) mg/dL Total Bilirubin (0.2-1.0) mg/dL AST (15-37) U/L ALT (12-78) U/L Alkaline Phosphatase (46-116) U/L Total Protein (6.4-8.2) g/dL Albumin (3.4-5.0) g/dL Globulin (2.3-3.5) g/dL Albumin/Globulin Ratio (1.2-2.2) Urine Color Yellow Urine Appearance Clear Urine pH 5.0 (4.5-8.0) Ur Specific [place] 1.015 (1.008-1.030) Urine Protein Negative (NEGATIVE) mg/dL Urine Glucose (UA) 1000 H (NEGATIVE) mg/dL Urine Ketones Negative (NEGATIVE) mg/dL Urine Occult Blood Negative (NEGATIVE) Urine Nitrite Negative (NEGATIVE) Urine Bilirubin Negative (NEGATIVE) Urine Urobilinogen Normal (NORMAL) mg/dL Ur Leukocyte Esterase Negative (NEGATIVE) Urine RBC 0-5 (0-5) Urine WBC 0-5 (0-5) Ur Epithelial Cells Rare Amorphous Sediment Few Urine Bacteria Not seen Urine Mucus Not seen Urine Opiates Screen Negative (NEGATIVE) Ur Oxycodone Screen Negative (NEGATIVE) Urine Methadone Screen Negative (NEGATIVE) Ur Propoxyphene Screen Negative (NEGATIVE) Ur Barbiturates Screen Positive H (NEGATIVE) Ur Tricyclics Screen Negative (NEGATIVE) Ur Phencyclidine Scrn Negative (NEGATIVE) Ur Amphetamine Screen Negative (NEGATIVE) U Methamphetamines Scrn Negative (NEGATIVE) Urine MDMA Screen Negative (NEGATIVE) U Benzodiazepines Scrn Positive H (NEGATIVE) U Cocaine Metab Screen Negative (NEGATIVE) U Marijuana (THC) Screen Negative (NEGATIVE) Ethyl Alcohol mg/dL Meds: Medications Discontinued Medications Generic Name Dose Route Start Last Admin Trade Name Freq PRN Reason Stop Dose Admin Insulin Human Regular 20 unit 07/03/17 17:39 07/03/17 18:01 Novolin R SUBCUT 07/03/17 17:40 Not Given ONETIME ONE Protocol Insulin Human Regular 20 unit 07/03/17 17:52 07/03/17 17:55 Novolin R SUBCUT 07/03/17 17:53 20 unit ONETIME ONE Administration Protocol Ketorolac Tromethamine 60 mg 07/03/17 17:35 07/03/17 17:43 Toradol IM 07/03/17 17:36 60 mg ONETIME ONE Administration Departure - Departure Time of Disposition: 19:01 Disposition: Home, Self-Care 01 Condition: Fair Clinical Impression: Difficulty speaking - Discharge Information Referrals: Ananth Greer NP [Primary Care Provider] - Forms: ED Department Discharge Additional Instructions: Please resume your regular medications, Please followup with your primary care provider in 3-5 days if not better, please call return to the emergency department with worsening of symptoms. - My Orders Last 24 Hours: My Active Orders 07/03/17 16:27 EKG Documentation Completion [RC] ASDIRECTED EKG 12 Lead [EK] Stat - Assessment/Plan Last 24 Hours: My Active Orders 07/03/17 16:27 EKG Documentation Completion [RC] ASDIRECTED EKG 12 Lead [EK] Stat Plan: Assessment Acuity = acute Site and laterality = slurred speech Etiology = unclear etiology Manifestations = headache Location of injury = Home Lab values = CBC, CMP unremarkable urinalysis does have 1000 glucose consistent glucose urea urine drug screen positive for barbiturates and benzodiazepine alcohol was negative blood sugar was 348 consistent hyperglycemia Plan She had some relief from the Toradol injection for her headache glucose did respond to 20 units of regular insulin came down to 246, I did review options with her including further workup such as a CAT scan she declined would prefer to go home and rest will follow up with her primary care in the next 3-5 days for reevaluation, does have a history of migraines feel this headache is similar to migraines she's had in the past Patient was in agreement with the plan all questions were answered, they were instructed to return to the emergency department or call for worsening symptoms. This note was dictated using [employer] voice recognition software please call with any questions.
[2017-07-03] MEDS ORDERED: Ketorolac 60 MG/2 ML SDV IM ONE (17:35)
[2017-07-03] MEDS ORDERED: Insulin Regular, Human 100 Units/ML 10 ML Vial SUBCUT ONE ×2 (17:39→17:52)
[2017-07-03 18:21] VITALS: BP 136/71
== END 2017-07-03 19:15 | disposition home or self-care (01) ==
LOC: JP.ED 15:42
DX: R47.81 Slurred speech (principal); E11.9 Type 2 diabetes mellitus without complications; F17.210 Nicotine dependence, cigarettes, uncomplicated; I10 Essential (primary) hypertension; E78.00 Pure hypercholesterolemia, unspecified; Z79.82 Long term (current) use of aspirin; Z79.4 Long term (current) use of insulin; Z79.899 Other long term (current) drug therapy; Z88.5 Allergy status to narcotic agent; Z88.6 Allergy status to analgesic agent; Z88.8 Allergy status to other drugs, medicaments and biological substances
CPT/HCPCS: 36415; 80053; 80305; 81001; 82962; 85025; 93005; 96372; 99285; A9270; G0480; J1885

== ENCOUNTER 2017-11-27 16:41 | Emergency (ER) | payer MEDICAID ==
[2017-11-27 17:04] VITALS: BP 140/89
[2017-11-27] MEDS ORDERED: Ketorolac 30 MG/ML SDV IM ONE (17:44)
[2017-11-27] MEDS ORDERED: Cetirizine 10 MG Tab PO ONE (17:45)
[2017-11-27] MEDS ORDERED: diphenhydrAMINE 25 MG Cap PO ONE (17:46)
[2017-11-27] MEDS ORDERED: Ciprofloxacin 500 MG Tab PO ONE (17:59)
--- NOTE | 2017-11-27 18:25 | EDM.PDOC ---
ED HPI GENERAL MEDICAL PROBLEM - General Chief Complaint: ENT Problem Stated Complaint: LT EAR PAIN & SWOLLEN Time Seen by Provider: 11/27/17 17:15 Source of Information: Reports: Patient, Family History Limitations: Reports: No Limitations - History of Present Illness INITIAL COMMENTS - FREE TEXT/NARRATIVE: Natasha presents today for complaints of worsening left ear pain, edema with radiation to her left lower jaw and surrounding area for 48 hours. Left Oral/Mouth Pain Score (Numeric/FACES): 8 - Related Data Allergies Allergy/AdvReac Type Severity Reaction Status Date / Time acetaminophen [From Vicodin] Allergy Hives Verified 05/26/17 19:46 codeine Allergy Hives Verified 05/26/17 19:46 hydrocodone [From Vicodin] Allergy Hives Verified 05/26/17 19:46 lisinopril Allergy Swelling Verified 05/26/17 19:46 morphine Allergy Hives Verified 05/26/17 19:46 nystatin Allergy Hives Verified 05/26/17 19:46 ropinirole Allergy Pain Verified 05/26/17 19:46 simvastatin Allergy Hives Verified 05/26/17 19:46 hydromorphone AdvReac Delusions Verified 05/26/17 19:46 Home Meds: Home Meds Albuterol [Proventil Neb Soln] 1 vial INH Q6HR PRN 09/28/15 [History] Aspirin 81 mg PO DAILY 09/28/15 [History] Calcium Carbonate/Vitamin D3 [Calcium 600 + Vit D 400 Tablet] 1 tab PO BID 09/27 [History] Clopidogrel [Plavix] 75 mg PO DAILY 09/28/15 [History] Ferrous Sulfate 325 mg PO DAILY 09/28/15 [History] Loratadine [Claritin] 10 mg PO DAILY 09/28/15 [History] Multivit-Min/FA/Lycopene/Lut [Certavite Sr-Antioxidant Tab] 1 tab PO DAILY 09/27 [History] Olopatadine [Patanol 0.1% Ophth Soln] 2 drop EYEBOTH BID 09/28/15 [History] Omeprazole 40 mg PO DAILY 09/28/15 [History] Primidone [Mysoline] 50 mg PO BID 09/28/15 [History] Vit D3 & K/Berberine HCl/Hops [Ostera] 1 tab PO DAILY 09/28/15 [History] Albuterol Sulfate [Ventolin Hfa] 2 puff INH ASDIRECTED PRN 04/28/17 [History] Azelastine [Astelin Nasal Soln] 2 spray TAWANDA BID 04/28/17 [History] Fluticasone Propionate [Flonase] 2 spray TAWANDA DAILY 04/28/17 [History] Insulin Degludec [Tresiba Flextouch U-200] 32 units SUBCNJ BEDTIME 04/28/17 [ History] Metoprolol Tartrate 25 mg PO BID 04/28/17 [History] atorvaSTATin [Lipitor] 80 mg PO DAILY 04/28/17 [History] Ofloxacin [Floxin 0.3% Otic Soln] 4 drop EARBOTH BID PRN 07/03/17 [History] Psyllium with Sucrose [Metamucil] 1 pack PO Q48H 07/03/17 [History] Past Medical History HEENT History: Reports: Hard of Hearing, Impaired Vision, Sinusitis, Other (See Below) Other HEENT History: bilateral hearing aides Cardiovascular History: Reports: CAD, High Cholesterol, Hypertension, [place], Other (See Below) Other Cardiovascular History: palpitations Respiratory History: Reports: Asthma, Sleep Apnea, Other (See Below) Other Respiratory History: dyspnea. c-pap Gastrointestinal History: Reports: GERD, Other (See Below) Other Gastrointestinal History: chronic right lower quad pain. 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 chronic pain. Ulnar neuropathy left and right elbow Neurological History: Reports: Neuropathy, Diabetic, TIA, Other (See Below) Other Neuro History: tremor essential Psychiatric History: Reports: Addiction, Anxiety, Depression, Panic Attack, PTSD Other Psychiatric History: agoraphobia. social phobia Endocrine/Metabolic History: Reports: Diabetes, Type II, Obesity/BMI 30+ Hematologic History: Reports: Iron Deficiency Dermatologic History: Reports: Psoriasis - Infectious Disease History Infectious Disease History: Reports: Chicken Pox - Past Surgical History HEENT Surgical History: Reports: Adenoidectomy, Myringotomy w Tube(s), Polypectomy, Tonsillectomy Cardiovascular Surgical History: Reports: Coronary Artery Stent, Percutaneous Transluminal Angioplasty, Other (See Below) Other Cardiovascular Surgeries/Procedures: x2 cardiac stents GI Surgical History: Reports: Appendectomy, Cholecystectomy Female Surgical History: Reports: Section, Tubal Ligation, Other ( See Below) Other Female Surgeries/Procedures: Ovarian cysts Musculoskeletal Surgical History: Reports: Arthroscopic Knee, Carpal Tunnel, Other (See Below) Other Musculoskeletal Surgeries/Procedures:: Carpal tunnel release Social & Family History - Tobacco Use Smoking Status *Q: Current Every Day Smoker Years of Tobacco use: 30 Packs/Tins Daily: 2 - Caffeine Use Caffeine Use: Reports: Soda - Recreational Drug Use Recreational Drug Use: No ED ROS ENT - Review of Systems Review Of Systems: See Below Constitutional: Denies: Fever, Chills, Malaise, Weakness, Night Sweats, Diaphoresis HEENT: Reports: Ear Pain, Other (Pain to left TMJ, lower jaw and surrounding tissue of left ear. ). Denies: Sinus Problem, Throat Pain, Throat Swelling, Vision Change Respiratory: Denies: Shortness of Breath, Wheezing, Cough, Sputum Cardiovascular: Denies: Chest Pain, Edema, Syncope Endocrine: Reports: No Symptoms GI/Abdominal: Reports: No Symptoms : Reports: No Symptoms Musculoskeletal: Denies: Neck Pain, Muscle Pain, Muscle Stiffness Skin: Reports: Erythema, Other (edema, redness to left ear). Denies: Bruising, Pruritis, Rash, Wound Neurological: Reports: No Symptoms Psychiatric: Reports: No Symptoms Hematologic/Lymphatic: Reports: No Symptoms Immunologic: Reports: No Symptoms ED EXAM, ENT - Physical Exam Exam: See Below Exam Limited By: No Limitations General Appearance: Alert, Mild Distress Eye Exam: Bilateral Eye: EOMI, Normal Inspection, PERRL Ears: Other (Right TM normal, lawson with good reflection of light, eustachian tube intact, no drainage or discharge. Left TM has significant edema, erythema , unable to visualize Left TM. Pain with any movement of pinna. ) Nose: Normal Inspection, Normal Mucousa, No Blood Mouth/Throat: Normal Gums, Normal Lips, Normal Oropharynx, Other (Upper partial present, no ulcers or wounds under partial.) Head: Atraumatic, Normocephalic Neck: Normal Inspection, Supple, Non-Tender, Full Range of Motion. No: Lymphadenopathy (R), Lymphadenopathy (L) Respiratory/Chest: No Respiratory Distress, Lungs Clear, Normal Breath Sounds, No Accessory Muscle Use, Chest Non-Tender Cardiovascular: Normal Peripheral Pulses, Regular Rate, Rhythm, No Edema, No Murmur, No Rub Back: Normal Inspection, Full Range of Motion. No: CVA Tenderness (R), CVA Tenderness (L) Extremities: Normal Inspection, Normal Range of Motion, Non-Tender, No Pedal Edema, Normal Capillary Refill Neurological: Alert, Oriented, CN II-XII Intact, Normal Cognition, Normal Gait, No Motor/Sensory Deficits Psychiatric: Normal Affect, Normal Mood Skin: Warm, Dry, Intact, Erythema, Other (Erythema, edema to left ear canal. ) Lymphatic: No Adenopathy ED ENT PROCEDURES - Additional/Other Procedure(s) Other (Free Text) Procedure(s): Ear wick placed to left ear canal with use of alligator forceps, wick soaked with steroid ear drops, patient tolerated well. Course - Vital Signs Last Recorded V/S: Last Vital Signs Temp 37.6 C 11/27/17 17:13 Pulse 68 11/27/17 17:13 Resp 18 11/27/17 17:13 BP 140/89 11/27/17 17:13 Pulse Ox 96 11/27/17 17:13 - Orders/Labs/Meds Orders: Active Orders 24 hr Category Date Time Status Max Facial Sinus w Cont [CT] Stat Exams 11/27/17 18:25 Taken Saline Lock Insert [OM.PC] Routine Oth 11/27/17 18:25 Ordered Labs: Laboratory Tests 11/27/17 11/27/17 Range/Units 18:25 18:25 WBC 12.6 H (4.5-11.0) K/uL RBC 5.68 H (3.30-5.50) M/uL Hgb 17.3 H (12.0-15.0) g/dL Hct 50.1 H (36.0-48.0) % MCV 88 (80-98) fL MCH 31 (27-31) pg MCHC 35 (32-36) % Plt Count 296 (150-400) K/uL Neut % (Auto) 66 (36-66) % Lymph % (Auto) 22 L (24-44) % [place] % (Auto) 7 H (2-6) % Eos % (Auto) 5 H (2-4) % Baso % (Auto) 1 (0-1) % Sodium 136 L (140-148) mmol/L Potassium 4.0 (3.6-5.2) mmol/L Chloride 102 (100-108) mmol/L Carbon Dioxide 24 (21-32) mmol/L Anion Gap 14.0 (5.0-14.0) mmol/L BUN 7 (7-18) mg/dL Creatinine 0.6 (0.6-1.0) mg/dL Est Cr Clr Drug Dosing 106.66 mL/min Estimated GFR (MDRD) > 60 (>60) Glucose 220 H (74-106) mg/dL Calcium 9.6 (8.5-10.1) mg/dL Patient lab work reviewed, noted WBC 12.6, RBC 5.68, Hgb 17.3, Na 136. Patient is a chronic user of smoking tobacco. She can follow up with her primary provider for recheck of labs with follow up. Meds: Medications Discontinued Medications Generic Name Dose Route Start Last Admin Trade Name Freq PRN Reason Stop Dose Admin Cetirizine HCl 10 mg 11/27/17 17:45 11/27/17 18:06 Zyrtec PO 11/27/17 17:46 10 mg ONETIME ONE Administration Ciprofloxacin 500 mg 11/27/17 17:59 11/27/17 18:07 Ciprofloxacin Hcl PO 11/27/17 18:00 500 mg ONETIME ONE Administration Diphenhydramine HCl 25 mg 11/27/17 17:46 11/27/17 18:01 Benadryl PO 11/27/17 17:47 25 mg ONETIME ONE Administration Hydromorphone HCl 0.5 mg 11/27/17 19:35 11/27/17 20:08 Dilaudid IVPUSH 11/27/17 19:36 0.5 mg ONETIME ONE Administration Sodium Chloride 80 mls @ 3 mls/sec 11/27/17 18:30 11/27/17 18:50 Normal Saline IV 3 mls/sec ASDIRECTED HILTON Administration Iopamidol 100 ml 11/27/17 18:30 11/27/17 18:50 Isovue-300 (61%) IV 100 ml . DIRECTED HILTON Administration Ketorolac Tromethamine 30 mg 11/27/17 17:44 11/27/17 18:01 Toradol IM 11/27/17 17:45 30 mg ONETIME ONE Administration Sodium Chloride 10 ml 11/27/17 18:25 11/27/17 20:09 Saline Flush FLUSH 10 ml ASDIRECTED PRN Administration Keep Vein Open - Radiology Interpretation CT Results Date: 11/27/17 (Left mastoids: Trace fluid in left mastoid air cells. No bone erosions. No other acute findings. Right mastoids: Small right mastoid effusion without bone erosions. No acute findings. No TMJ abnormality, no pneumocephalus.) Departure - Departure Time of Disposition: 20:41 Disposition: Home, Self-Care 01 Condition: Fair Clinical Impression: Otitis externa - Discharge Information Instructions: Otitis Externa, [id number] Referrals: Ananth Greer [facility] [Primary Care Provider] - Forms: ED Department Discharge Additional Instructions: You have been evaluated and treated in the emergency room for acute otitis externa of the left ear. You have had an ear wick placed in the left ear, this will help the ear drops to get through the ear canal and reduce swelling. The ear wick will fall out on its own, do not use Q-tips, rub, push or touch the ear wick. Cortisporin ear drops as directed. Oral ciprofloxacin 500mg PO twice per day as directed. You can also take ibuprofen 600mg to 800mg by mouth three times a day for pain. You can also take zyrtec 10 mg by mouth daily to help with allergies. Follow up with your primary provider in 7 to 10 days for recheck. Follow up with ENT for recurrent infections. Keep yourself hydrated. Return for worsening, issues or concerns. - My Orders Last 24 Hours: My Active Orders 11/27/17 18:25 Max Facial Sinus w Cont [CT] Stat Saline Lock Insert [OM.PC] Routine - Assessment/Plan Last 24 Hours: My Active Orders 11/27/17 18:25 Max Facial Sinus w Cont [CT] Stat Saline Lock Insert [OM.PC] Routine Assessment:: Otitis externa left ear CT negative for mastoiditis or acute abscess. Plan: Patient evaluated and treated in the emergency room for acute otitis externa of the left ear. An ear wick placed in the left ear, this will help the ear drops to get through the ear canal and reduce swelling. The ear wick will fall out on its own, do not use Q-tips, rub, push or touch the ear wick. Cortisporin ear drops as directed. Oral ciprofloxacin 500mg PO twice per day as directed. She can also take ibuprofen 600mg to 800mg by mouth three times a day for pain. She can also take zyrtec 10 mg by mouth daily to help with allergies. Follow up with her primary provider in 7 to 10 days for recheck. Follow up with ENT for recurrent infections. Keep herself hydrated. Return for worsening, issues or concerns. Noted WBC 12.6, RBC 5.68, Hgb 17.3, Na 136. Patient is a chronic user of smoking tobacco. She can follow up with her primary provider for recheck of labs with follow up.
[2017-11-27] MEDS ORDERED: Sodium Chloride 0.9% 80 ML IV SCH (18:30)
[2017-11-27] MEDS ORDERED: Iopamidol 612 MG/ML 100 ML Bottle IV SCH (18:30)
[2017-11-27] MEDS: Sodium Chloride 0.9% 10 ML Syringe FLUSH PRN ×3 (18:38→20:09)
[2017-11-27] MEDS ORDERED: HYDROmorphone 0.5 MG/0.5 ML Syringe IVPUSH ONE (19:35)
== END 2017-11-27 20:55 | disposition home or self-care (01) ==
LOC: JP.ED 16:41
DX: H60.92 Unspecified otitis externa, left ear (principal)
CPT/HCPCS: 36415; 70481; 80048; 85025; 96372; 96374; 99284; A9270; J1170; J1885; J7030; J7050; Q9967; 70487

== ENCOUNTER 2017-12-17 01:30 | Emergency (ER) | payer MEDICAID ==
[2017-12-17 01:45] VITALS: BP 125/52
--- NOTE | 2017-12-17 02:13 | EDM.PDOC ---
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 She is certain this is what caused it on the other hand she needed reassurance that she was having a heart attack. Previous heart attack in 2015 with 2 stents presented with right arm pain from which she remembers. Her pain today is aggravated by movement of her neck or her right arm. She is very tender to touch around the shoulder. No analgesics taken at home She has had long-standing neck pain but this is a little more into the right shoulder No shortness of breath diaphoresis or nausea tonight, she does get occasional palpitations which she has had on and off in the past. She has had some cough today but this is not unusual for her, not any more short of breath than usual Right Arm Pain Score (Numeric/FACES): 8 - Related Data Allergies Allergy/AdvReac Type Severity Reaction Status Date / Time acetaminophen [From Vicodin] Allergy Hives Verified 12/17/17 01:45 codeine Allergy Hives Verified 12/17/17 01:45 hydrocodone [From Vicodin] Allergy Hives Verified 12/17/17 01:45 lisinopril Allergy Swelling Verified 12/17/17 01:45 morphine Allergy Hives Verified 12/17/17 01:45 nystatin Allergy Hives Verified 12/17/17 01:45 ropinirole Allergy Pain Verified 12/17/17 01:45 simvastatin Allergy Hives Verified 12/17/17 01:45 hydromorphone AdvReac Delusions Verified 12/17/17 01:45 Home Meds: Home Meds Albuterol [Proventil Neb Soln] 1 vial INH Q6HR PRN 09/28/15 [History] Aspirin 81 mg PO DAILY 09/28/15 [History] Calcium Carbonate/Vitamin D3 [Calcium 600 + Vit D 400 Tablet] 1 tab PO BID 09/27 [History] Clopidogrel [Plavix] 75 mg PO DAILY 09/28/15 [History] Ferrous Sulfate 325 mg PO DAILY 09/28/15 [History] Loratadine [Claritin] 10 mg PO DAILY 09/28/15 [History] Multivit-Min/FA/Lycopene/Lut [Certavite Sr-Antioxidant Tab] 1 tab PO DAILY 09/27 [History] Olopatadine [Patanol 0.1% Ophth Soln] 2 drop EYEBOTH BID 09/28/15 [History] Omeprazole 40 mg PO DAILY 09/28/15 [History] Primidone [Mysoline] 50 mg PO BID 09/28/15 [History] Vit D3 & K/Berberine HCl/Hops [Ostera] 1 tab PO DAILY 09/28/15 [History] Albuterol Sulfate [Ventolin Hfa] 2 puff INH ASDIRECTED PRN 04/28/17 [History] Azelastine [Astelin Nasal Soln] 2 spray TAWANDA BID 04/28/17 [History] Fluticasone Propionate [Flonase] 2 spray TAWANDA DAILY 04/28/17 [History] Insulin Degludec [Tresiba Flextouch U-200] 32 units SUBCNJ BEDTIME 04/28/17 [ History] Metoprolol Tartrate 25 mg PO BID 04/28/17 [History] atorvaSTATin [Lipitor] 80 mg PO DAILY 04/28/17 [History] Ofloxacin [Floxin 0.3% Otic Soln] 4 drop EARBOTH BID PRN 07/03/17 [History] Psyllium with Sucrose [Metamucil] 1 pack PO Q48H 07/03/17 [History] Acetaminophen/oxyCODONE [Percocet 325-5 MG] 1 - 2 each PO Q4H PRN #10 tab [Rx] Cyclobenzaprine [Flexeril] 10 mg PO TID PRN #15 tab 12/17/17 [Rx] Past Medical History HEENT History: Reports: Hard of Hearing, Impaired Vision, Sinusitis, Other (See Below) Other HEENT History: bilateral hearing aides Cardiovascular History: Reports: CAD, High Cholesterol, Hypertension, [place], Other (See Below) Other Cardiovascular History: palpitations Respiratory History: Reports: Asthma, Sleep Apnea, Other (See Below) Other Respiratory History: dyspnea. c-pap Gastrointestinal History: Reports: GERD, Other (See Below) Other Gastrointestinal History: chronic right lower quad pain. 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 chronic pain. Ulnar neuropathy left and right elbow Neurological History: Reports: Neuropathy, Diabetic, TIA, Other (See Below) Other Neuro History: tremor essential Psychiatric History: Reports: Addiction, Anxiety, Depression, Panic Attack, PTSD Other Psychiatric History: agoraphobia. social phobia Endocrine/Metabolic History: Reports: Diabetes, Type II, Obesity/BMI 30+ Hematologic History: Reports: Iron Deficiency Dermatologic History: Reports: Psoriasis - Infectious Disease History Infectious Disease History: Reports: Chicken Pox - Past Surgical History HEENT Surgical History: Reports: Adenoidectomy, Myringotomy w Tube(s), Polypectomy, Tonsillectomy Cardiovascular Surgical History: Reports: Coronary Artery Stent, Percutaneous Transluminal Angioplasty, Other (See Below) Other Cardiovascular Surgeries/Procedures: x2 cardiac stents GI Surgical History: Reports: Appendectomy, Cholecystectomy Female Surgical History: Reports: Section, Tubal Ligation, Other ( See Below) Other Female Surgeries/Procedures: Ovarian cysts Musculoskeletal Surgical History: Reports: Arthroscopic Knee, Carpal Tunnel, Other (See Below) Other Musculoskeletal Surgeries/Procedures:: Carpal tunnel release Social & Family History - Tobacco Use Smoking Status *Q: Unknown Ever Smoked - Caffeine Use Caffeine Use: Reports: Soda Review of Systems - Review of Systems Review Of Systems: See Below Constitutional: Reports: No Symptoms Eyes: Reports: No Symptoms Ears: Reports: No Symptoms, Other (Decreased hearing chronically) Nose: Reports: No Symptoms Mouth/Throat: Reports: No Symptoms Respiratory: Reports: Shortness of Breath, Cough (Asthma, chronic smoker) Cardiovascular: Reports: No Symptoms GI/Abdominal: Reports: No Symptoms Musculoskeletal: Reports: Neck Pain, Shoulder Pain, Other (Decreased movement neck and shoulder) Skin: Reports: No Symptoms Neurological: Reports: Pre-Existing Deficit ED EXAM, GENERAL - Physical Exam Exam: See Below Exam Limited By: No Limitations General Appearance: Alert, Anxious, Mild Distress, Other (Vital signs normal, No difficulty speaking or breathing) Eye Exam: Bilateral Eye: Normal Inspection Ears: Normal External Exam Nose: Normal Inspection Throat/Mouth: Normal Inspection, Normal Voice Head: Atraumatic, Normocephalic Neck: Normal Inspection, Limited Range of Motion, Tender Lateral. No: Lymphadenopathy (R), Lymphadenopathy (L) Respiratory/Chest: No Respiratory Distress, Lungs Clear Cardiovascular: Normal Peripheral Pulses, Regular Rate, Rhythm Extremities: Normal Inspection, Limited Range of Motion (Right shoulder), Other (Tenderness around the right shoulder) Neurological: Alert, Oriented, Normal Cognition Psychiatric: Anxious Skin Exam: Warm, Dry, Intact, Normal Color, No Rash Lymphatic: No Adenopathy Course - Vital Signs Last Recorded V/S: Last Vital Signs Temp 36.4 C 12/17/17 01:41 Pulse 73 12/17/17 01:41 Resp 16 12/17/17 01:41 BP 125/52 L 12/17/17 01:41 Pulse Ox 95 12/17/17 01:41 - Re-Assessments/Exams Free Text/Narrative Re-Assessment/Exam: 12/17/17 02:10 52-year-old female with right shoulder and neck pain Came on aft moving boxes at home She does have a history of coronary artery disease and st examination shows significant tenderness of the neck and shoulder muscles which reproduces the pain. EKG shows normal sinus rhythm rate 71, normal EKG, no signs of ischemia Discharge on medications, prescriptions below Follow- primary careup Departure - Departure Time of Disposition: 02:12 Disposition: Home, Self-Care 01 Condition: Good Clinical Impression: Right shoulder strain Qualifiers: Encounter type: initial encounter Qualified Code(s): S46.911A - Strain of unspecified muscle, fascia and tendon at shoulder and upper arm level, right arm , initial encounter Strain of right trapezius muscle Qualifiers: Encounter type: initial encounter Qualified Code(s): S46.811A - Strain of other muscles, fascia and tendons at shoulder and upper arm level, right arm, initial encounter - Discharge Information Prescriptions: Acetaminophen/oxyCODONE [Percocet 325-5 MG] 1 - 2 each PO Q4H PRN #10 tab PRN Reason: Moderate to severe pain Cyclobenzaprine [Flexeril] 10 mg PO TID PRN #15 tab PRN Reason: Muscle pain or spasm Instructions: Muscle Strain Referrals: PCP,None [Primary Care Provider] - Forms: ED Department Discharge
== END 2017-12-17 02:21 | disposition home or self-care (01) ==
LOC: JP.ED 01:30
DX: S46.911A Strain of unspecified muscle, fascia and tendon at shoulder and upper arm level, right arm, initial encounter (principal); S46.811A Strain of other muscles, fascia and tendons at shoulder and upper arm level, right arm, initial encounter; E11.40 Type 2 diabetes mellitus with diabetic neuropathy, unspecified; I25.2 Old myocardial infarction; E78.00 Pure hypercholesterolemia, unspecified; J45.909 Unspecified asthma, uncomplicated; F41.9 Anxiety disorder, unspecified; F32.9 Major depressive disorder, single episode, unspecified; Z79.82 Long term (current) use of aspirin; Z79.899 Other long term (current) drug therapy; Z88.5 Allergy status to narcotic agent; Z88.8 Allergy status to other drugs, medicaments and biological substances; Z88.6 Allergy status to analgesic agent; X50.0XXA Overexertion from strenuous movement or load, initial encounter
CPT/HCPCS: 99283

== ENCOUNTER 2018-03-19 22:28 | Emergency (ER) | payer MEDICAID ==
--- NOTE | 2018-03-19 22:37 | EDM.PDOC ---
ED HPI GENERAL MEDICAL PROBLEM - General Chief Complaint: Neuro Symptoms/Deficits Stated Complaint: STROKE Time Seen by Provider: 03/19/18 22:36 Source of Information: Reports: Patient, Old Records, RN History Limitations: Reports: No Limitations - History of Present Illness INITIAL COMMENTS - FREE TEXT/NARRATIVE: 52 yo female with a pHx of CAD presents with about 7 hrs of light-headedness worse with standing. Thinks her speech was slurred earlier. No MATTHEWS. Feels like she will fall/collapse when she stands. Did not reach out to her provider when sx's began. Took a nap after sx's began and did not improve. Has mild L ant. chest tightness. Had a stress test per cardiology last week and no one has gotten back to her yet, but she thinks there was no problem. Has not otherwise been ill lately. BP was high at home before arrival(>200 systolic). Recently restarted her primidone after being off of it for about 2 weeks. Is under a lot of stress recently due to her having a heart attack 2 weeks ago. Onset: Today Onset Date: 03/19/18 Onset Time: 15:00 Duration: Hour(s):, Constant Location: Reports: Head, Generalized Quality: Reports: Other (mild L chest tightness) Severity: Mild Improves with: Reports: None Worsens with: Reports: None Context: Reports: Other (Hx of CAD) Associated Symptoms: Reports: Chest Pain. 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: Other (see below) (none) CHEST Pain Score (Numeric/FACES): 3 - Related Data Allergies Allergy/AdvReac Type Severity Reaction Status Date / Time acetaminophen [From Vicodin] Allergy Hives Verified 03/19/18 22:50 codeine Allergy Hives Verified 03/19/18 22:50 hydrocodone [From Vicodin] Allergy Hives Verified 03/19/18 22:50 lisinopril Allergy Swelling Verified 03/19/18 22:50 morphine Allergy Hives Verified 03/19/18 22:50 nystatin Allergy Hives Verified 03/19/18 22:50 ropinirole Allergy Pain Verified 03/19/18 22:50 simvastatin Allergy Hives Verified 03/19/18 22:50 hydromorphone AdvReac Delusions Verified 03/19/18 22:50 Home Meds: Home Meds Albuterol [Proventil Neb Soln] 1 vial INH Q6HR PRN 09/28/15 [History] Aspirin 81 mg PO DAILY 09/28/15 [History] Calcium Carbonate/Vitamin D3 [Calcium 600 + Vit D 400 Tablet] 1 tab PO BID 09/27 [History] Clopidogrel [Plavix] 75 mg PO DAILY 09/28/15 [History] Ferrous Sulfate 325 mg PO DAILY 09/28/15 [History] Loratadine [Claritin] 10 mg PO DAILY 09/28/15 [History] Multivit-Min/FA/Lycopene/Lut [Certavite Sr-Antioxidant Tab] 1 tab PO DAILY 09/27 [History] Olopatadine [Patanol 0.1% Ophth Soln] 2 drop EYEBOTH BID 09/28/15 [History] Omeprazole 40 mg PO DAILY 09/28/15 [History] Primidone [Mysoline] 50 mg PO BID 09/28/15 [History] Vit D3 & K/Berberine HCl/Hops [Ostera] 1 tab PO DAILY 09/28/15 [History] Albuterol Sulfate [Ventolin Hfa] 2 puff INH ASDIRECTED PRN 04/28/17 [History] Azelastine [Astelin Nasal Soln] 2 spray TAWANDA BID 04/28/17 [History] Fluticasone Propionate [Flonase] 2 spray TAWANDA DAILY 04/28/17 [History] Insulin Degludec [Tresiba Flextouch U-200] 32 units SUBCNJ BEDTIME 04/28/17 [ History] Metoprolol Tartrate 25 mg PO BID 04/28/17 [History] atorvaSTATin [Lipitor] 80 mg PO DAILY 04/28/17 [History] Ofloxacin [Floxin 0.3% Otic Soln] 4 drop EARBOTH BID PRN 07/03/17 [History] Psyllium with Sucrose [Metamucil] 1 pack PO Q48H 07/03/17 [History] Acetaminophen/oxyCODONE [Percocet 325-5 MG] 1 - 2 each PO Q4H PRN #10 tab [Rx] Cyclobenzaprine [Flexeril] 10 mg PO TID PRN #15 tab 12/17/17 [Rx] Past Medical History HEENT History: Reports: Hard of Hearing, Impaired Vision, Sinusitis, Other (See Below) Other HEENT History: bilateral hearing aides Cardiovascular History: Reports: CAD, High Cholesterol, Hypertension, [place], Other (See Below) Other Cardiovascular History: palpitations Respiratory History: Reports: Asthma, Sleep Apnea, Other (See Below) Other Respiratory History: dyspnea. c-pap Gastrointestinal History: Reports: GERD, Other (See Below) Other Gastrointestinal History: chronic right lower quad pain. 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 chronic pain. Ulnar neuropathy left and right elbow Neurological History: Reports: Neuropathy, Diabetic, TIA, Other (See Below) Other Neuro History: tremor essential Psychiatric History: Reports: Addiction, Anxiety, Depression, Panic Attack, PTSD Other Psychiatric History: agoraphobia. social phobia Endocrine/Metabolic History: Reports: Diabetes, Type II, Obesity/BMI 30+ Hematologic History: Reports: Iron Deficiency Dermatologic History: Reports: Psoriasis - Infectious Disease History Infectious Disease History: Reports: Chicken Pox - Past Surgical History HEENT Surgical History: Reports: Adenoidectomy, Myringotomy w Tube(s), Polypectomy, Tonsillectomy Cardiovascular Surgical History: Reports: Coronary Artery Stent, Percutaneous Transluminal Angioplasty, Other (See Below) Other Cardiovascular Surgeries/Procedures: x2 cardiac stents GI Surgical History: Reports: Appendectomy, Cholecystectomy Female Surgical History: Reports: Section, Tubal Ligation, Other ( See Below) Other Female Surgeries/Procedures: Ovarian cysts Musculoskeletal Surgical History: Reports: Arthroscopic Knee, Carpal Tunnel, Other (See Below) Other Musculoskeletal Surgeries/Procedures:: Carpal tunnel release Social & Family History - Caffeine Use Caffeine Use: Reports: Soda ED ROS GENERAL - Review of Systems Review Of Systems: See Below Constitutional: Reports: No Symptoms HEENT: Reports: No Symptoms Respiratory: Reports: No Symptoms Cardiovascular: Reports: Chest Pain (mild, L sided), Lightheadedness (worse with standing.) Endocrine: Reports: No Symptoms GI/Abdominal: Reports: No Symptoms : Reports: No Symptoms Musculoskeletal: Reports: No Symptoms Skin: Reports: No Symptoms Neurological: Reports: Difficulty Walking (feels like she will fall.), Change in Speech (earlier, ? not quite normal now). Denies: Confusion, Dizziness (not vertiginous), Headache, Numbness, Paresthesia, Syncope Psychiatric: Reports: No Symptoms ED EXAM, NEURO - Physical Exam Exam: See Below Exam Limited By: No Limitations General Appearance: Alert, WD/WN, No Apparent Distress Eye Exam: Bilateral Eye: EOMI, Normal Inspection, PERRL Ears: Normal External Exam, Normal Canal, Hearing Loss, Other (L hearing aid) Nose: Normal Inspection, Normal Mucosa, No Blood Throat/Mouth: Normal Inspection, Normal Lips, Normal Oropharynx, Normal Voice, No Airway Compromise Head Exam: Atraumatic, Normocephalic Neck: Normal Inspection, Supple, Non-Tender Respiratory/Chest: No Respiratory Distress, Lungs Clear, Normal Breath Sounds, No Accessory Muscle Use Cardiovascular: Regular Rate, Rhythm, No Edema GI/Abdominal: Normal Bowel Sounds, Soft, Non-Tender Neurological: Alert, Normal Mood/Affect, CN II-XII Intact, Normal Plantar Flexion, No Motor/Sensory Deficits, Oriented x 3 Back Exam: Normal Inspection. No: CVA Tenderness (R), CVA Tenderness (L) Extremities: Normal Inspection, Normal Range of Motion, Non-Tender, No Pedal Edema Psychiatric: Normal Affect, Normal Mood Skin Exam: Warm, Dry, Intact, Normal Color, No Rash EKG INTERPRETATION EKG Date: 03/19/18 Time: 22:20 Rhythm: NSR Rate (Beats/Min): 86 [place]: Normal P-Wave: Present QRS: Normal ST-T: Normal QT: Normal Comparison: No Change Course - Vital Signs Text/Narrative:: Feeling improved after Ativan. Last Recorded V/S: Last Vital Signs Temp 36.9 C 03/19/18 22:53 Pulse 85 03/19/18 22:53 Resp 23 H 03/19/18 22:53 BP 157/67 H 03/19/18 22:53 Pulse Ox 94 L 03/19/18 22:53 Orthostatic Blood Pressure [ 142/70 Standing] Orthostatic Blood Pressure [ 144/75 Sitting] Orthostatic Blood Pressure [ 163/71 Supine] - Orders/Labs/Meds Orders: Active Orders 24 hr Category Date Time Status Cardiac Monitoring [RC] .As Directed Care 03/19/18 22:29 Active EKG Documentation Completion [RC] ASDIRECTED Care 03/19/18 22:29 Active Orthostatic Vital Signs [RC] ASDIRECTED Care 03/19/18 22:46 Active UA W/MICROSCOPIC [URIN] Stat Lab 03/19/18 23:42 Ordered EKG 12 Lead [EK] Routine Ther 03/19/18 22:29 Ordered Labs: Laboratory Tests 03/19/18 03/19/18 03/19/18 Range/Units 22:55 22:55 23:42 WBC 11.2 H (4.5-11.0) K/uL RBC 5.07 (3.30-5.50) M/uL Hgb 15.7 H (12.0-15.0) g/dL Hct 46.1 (36.0-48.0) % MCV 91 (80-98) fL MCH 31 (27-31) pg MCHC 34 (32-36) % Plt Count 249 (150-400) K/uL Sodium 134 L (140-148) mmol/L Potassium 3.8 (3.6-5.2) mmol/L Chloride 102 (100-108) mmol/L Carbon Dioxide 25 (21-32) mmol/L Anion Gap 10.8 (5.0-14.0) mmol/L BUN 10 (7-18) mg/dL Creatinine 0.7 (0.6-1.0) mg/dL Est Cr Clr Drug Dosing 91.42 mL/min Estimated GFR (MDRD) > 60 (>60) Glucose 218 H (74-106) mg/dL Calcium 8.8 (8.5-10.1) mg/dL Troponin I < 0.017 (0.000-0.056) ng/mL Urine Color Yellow Urine Appearance Clear Urine pH 7.0 (4.5-8.0) Ur Specific [place] 1.010 (1.008-1.030) Urine Protein Negative (NEGATIVE) mg/dL Urine Glucose (UA) >=1000 H (NEGATIVE) mg/dL Urine Ketones 15 H (NEGATIVE) mg/dL Urine Occult Blood Negative (NEGATIVE) Urine Nitrite Negative (NEGATIVE) Urine Bilirubin Negative (NEGATIVE) Urine Urobilinogen 1 (NORMAL) mg/dL Ur Leukocyte Esterase Negative (NEGATIVE) Urine RBC Not seen (0-5) Urine WBC Not seen (0-5) Ur Epithelial Cells Few Amorphous Sediment Not seen Urine Bacteria Not seen Urine Mucus Not seen Meds: Medications Discontinued Medications Generic Name Dose Route Start Last Admin Trade Name Rhina PRN Reason Stop Dose Admin Lorazepam 0.5 mg 03/19/18 23:38 03/19/18 23:42 Ativan PO 03/19/18 23:39 0.5 mg ONETIME ONE Administration Departure - Departure Time of Disposition: 00:20 Disposition: Home, Self-Care 01 Condition: Fair Clinical Impression: Anxiety, Glucosuria, Yeast vaginitis - Discharge Information *PRESCRIPTION DRUG MONITORING PROGRAM REVIEWED*: Not Applicable *COPY OF PRESCRIPTION DRUG MONITORING REPORT IN PATIENT CESILIA: Not Applicable Instructions: Generalized Anxiety Disorder, Adult Referrals: Ananth Greer NP [Primary Care Provider] - Forms: ED Department Discharge Additional Instructions: Take lorazepam as needed over the weekend. See your doctor for recheck early next week. Follow a strict diabetic diet. Try miconazole or clotrimazole for your likely yeast infection. Return if worse. - My Orders Last 24 Hours: My Active Orders 03/19/18 22:29 Cardiac Monitoring [RC] .As Directed EKG Documentation Completion [RC] ASDIRECTED EKG 12 Lead [EK] Routine 03/19/18 22:46 Orthostatic Vital Signs [RC] ASDIRECTED 03/19/18 23:42 UA W/MICROSCOPIC [URIN] Stat - Assessment/Plan Last 24 Hours: My Active Orders 03/19/18 22:29 Cardiac Monitoring [RC] .As Directed EKG Documentation Completion [RC] ASDIRECTED EKG 12 Lead [EK] Routine 03/19/18 22:46 Orthostatic Vital Signs [RC] ASDIRECTED 03/19/18 23:42 UA W/MICROSCOPIC [URIN] Stat
[2018-03-19] MEDS ORDERED: LORazepam 0.5 MG Tab PO ONE (23:38)
[2018-03-20 00:27] VITALS: BP 133/54
== END 2018-03-20 00:29 | disposition home or self-care (01) ==
LOC: JP.ED 22:28
DX: F41.9 Anxiety disorder, unspecified (principal); R81 Glycosuria; B37.3 Candidiasis of vulva and vagina; F32.9 Major depressive disorder, single episode, unspecified; E11.9 Type 2 diabetes mellitus without complications; I10 Essential (primary) hypertension; E78.00 Pure hypercholesterolemia, unspecified; K21.9 Gastro-esophageal reflux disease without esophagitis; Z79.82 Long term (current) use of aspirin; Z79.4 Long term (current) use of insulin; Z79.899 Other long term (current) drug therapy; Z88.8 Allergy status to other drugs, medicaments and biological substances; Z88.5 Allergy status to narcotic agent
CPT/HCPCS: 36415; 80048; 81001; 84484; 85027; 93005; 99284; A9270

== ENCOUNTER 2018-09-10 20:31 | Emergency (ER) | payer MEDICAID ==
[2018-09-10] MEDS ORDERED: Ondansetron 4 MG/2 ML SDV IVPUSH ONE (20:47)
[2018-09-10] MEDS ORDERED: Sodium Chloride 0.9% 10 ML Syringe FLUSH PRN (21:15)
[2018-09-10] MEDS ORDERED: LORazepam 2 MG/ML SDV IVPUSH ONE (21:16)
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
--- NOTE | 2018-09-10 21:40 | CRLCR ---
Indication: Chest pain. Technique: A single AP portable view of the chest was obtained. Comparison: April 28, 2017. Findings: The left hemidiaphragm is elevated. The heart is normal in size. No infiltrate, pleural effusion, or pneumothorax is identified. Impression: No acute cardiopulmonary process. Dictated by Gricelda Rodriguez MD @ Sep 10 2018 9:38PM Signed by Dr. Gricelda Rodriguez @ Sep 10 2018 9:39PM
[2018-09-10] MEDS ORDERED: Ketorolac 30 MG/ML SDV IVPUSH ONE (22:08)
[2018-09-10 23:26] VITALS: BP 115/51
[2018-09-10] MEDS ORDERED: HYDROmorphone 1 MG/ML Syringe IM ONE (23:27)
[2018-09-10] MEDS ORDERED: HYDROmorphone 1 MG/ML Syringe IVPUSH ONE (23:39)
== END 2018-09-11 01:26 | disposition home or self-care (01) ==
LOC: JP.ED 20:31
DX: R07.89 Other chest pain (principal); I25.10 Atherosclerotic heart disease of native coronary artery without angina pectoris; E78.00 Pure hypercholesterolemia, unspecified; I10 Essential (primary) hypertension; J44.9 Chronic obstructive pulmonary disease, unspecified; F17.210 Nicotine dependence, cigarettes, uncomplicated; Z88.5 Allergy status to narcotic agent; Z88.8 Allergy status to other drugs, medicaments and biological substances; Z95.5 Presence of coronary angioplasty implant and graft; Z79.899 Other long term (current) drug therapy; Z79.82 Long term (current) use of aspirin; Z79.84 Long term (current) use of oral hypoglycemic drugs
CPT/HCPCS: 36415; 71045; 80053; 82553; 84484; 85025; 93005; 96374; 96375; 99285; J1170; J1885; J2060; J2405

== ENCOUNTER 2018-09-19 01:15 | Emergency (ER) | payer MEDICAID ==
[2018-09-19] MEDS ORDERED: Ketorolac 60 MG/2 ML SDV IM ONE (02:00)
[2018-09-19] MEDS ORDERED: Ketorolac 60 MG/2 ML SDV ONE (02:11)
[2018-09-19 10:05] VITALS: BP 147/72
== END 2018-09-19 02:25 | disposition home or self-care (01) ==
LOC: JP.ED 01:15
DX: S23.9XXA Sprain of unspecified parts of thorax, initial encounter (principal); I25.2 Old myocardial infarction; I10 Essential (primary) hypertension; Z95.5 Presence of coronary angioplasty implant and graft; X50.9XXA Other and unspecified overexertion or strenuous movements or postures, initial encounter
CPT/HCPCS: 96372; 99284; J1885

== ENCOUNTER 2019-02-14 23:31 | Emergency (ER) | payer MEDICAID ==
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
[2019-02-15 01:06] VITALS: BP 131/70; PULSE 71
== END 2019-02-15 01:06 | disposition home or self-care (01) ==
LOC: JP.ED 23:31
DX: R07.89 Other chest pain (principal); I25.10 Atherosclerotic heart disease of native coronary artery without angina pectoris; E78.00 Pure hypercholesterolemia, unspecified; I10 Essential (primary) hypertension; I25.2 Old myocardial infarction; J44.9 Chronic obstructive pulmonary disease, unspecified; K21.9 Gastro-esophageal reflux disease without esophagitis; E11.40 Type 2 diabetes mellitus with diabetic neuropathy, unspecified; Z88.5 Allergy status to narcotic agent; Z88.6 Allergy status to analgesic agent; Z88.8 Allergy status to other drugs, medicaments and biological substances; Z88.1 Allergy status to other antibiotic agents; Z79.899 Other long term (current) drug therapy; Z79.02 Long term (current) use of antithrombotics/antiplatelets; Z79.82 Long term (current) use of aspirin; Z79.4 Long term (current) use of insulin
CPT/HCPCS: 36415; 80048; 84484; 85027; 85379; 93005; 99285-25

== ENCOUNTER 2019-03-31 18:02 | Emergency (ER) | payer MEDICAID ==
[2019-03-31 18:17] VITALS: BP 156/74; PULSE 89
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
[2019-03-31] MEDS ORDERED: Ketorolac 60 MG/2 ML SDV IM ONE (19:21)
--- NOTE | 2019-03-31 19:57 | CRLCR ---
INDICATION: pain in left chest TECHNIQUE: Chest 2 views. COMPARISON: 08/21/18 FINDINGS: Cardiovascular and mediastinum: Heart size and vasculature are normal in caliber and appearance. Mediastinum is within normal limits. Lungs and pleural spaces: Lungs are clear. No sign of infiltrate or mass. No sign of pleural effusion. No pneumothorax. Bones and soft tissues: No significant findings. IMPRESSION: Unremarkable chest. Dictated by: Ramon Elizabeth MD @ 03/31/2019 19:56:05 (Electronically Signed)
[2019-03-31] MEDS ORDERED: Insulin Regular, Human 100 Units/ML 3 ML Vial SUBCUT ONE (20:01)
[2019-03-31] MEDS ORDERED: Albuterol 0.083% 2.5 MG/3 ML Neb Soln NEB ONE (20:02)
[2019-03-31] MEDS ORDERED: predniSONE 10 MG Tab PO ONE (21:25)
[2019-03-31] MEDS ORDERED: Azithromycin 250 MG Tab PO ONE (21:25)
== END 2019-03-31 21:44 | disposition home or self-care (01) ==
LOC: JP.ED 18:02
DX: J44.9 Chronic obstructive pulmonary disease, unspecified (principal); I10 Essential (primary) hypertension; I25.10 Atherosclerotic heart disease of native coronary artery without angina pectoris; I25.2 Old myocardial infarction; E78.00 Pure hypercholesterolemia, unspecified; K21.9 Gastro-esophageal reflux disease without esophagitis; E11.40 Type 2 diabetes mellitus with diabetic neuropathy, unspecified; Z86.2 Personal history of diseases of the blood and blood-forming organs and certain disorders involving the immune mechanism; E66.9 Obesity, unspecified; Z68.35 Body mass index [BMI] 35.0-35.9, adult; F17.210 Nicotine dependence, cigarettes, uncomplicated; Z79.82 Long term (current) use of aspirin; Z79.02 Long term (current) use of antithrombotics/antiplatelets; Z79.4 Long term (current) use of insulin; Z79.899 Other long term (current) drug therapy; Z88.5 Allergy status to narcotic agent; Z88.8 Allergy status to other drugs, medicaments and biological substances; Z88.6 Allergy status to analgesic agent
CPT/HCPCS: 36415; 36600; 71046; 80053; 82803; 83880; 84484; 85025; 85379; 93005; 94640; 96372; 99285; J1815; J1885

== ENCOUNTER 2019-09-29 18:26 | Emergency (ER) | payer MEDICAID ==
[2019-09-29 18:41] VITALS: BP 155/71; PULSE 73
[2019-09-29] MEDS ORDERED: Ondansetron 4 MG/2 ML SDV IVPUSH ONE (19:40)
[2019-09-29] MEDS ORDERED: HYDROmorphone 0.5 MG/0.5 ML Syringe IVPUSH ONE (19:40)
[2019-09-29] MEDS ORDERED: Sodium Chloride 0.9% 1,000 ML IV SCH (19:45)
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
== END 2019-09-29 21:43 | disposition home or self-care (01) ==
LOC: JP.ED 18:26
DX: G44.209 Tension-type headache, unspecified, not intractable (principal); R19.7 Diarrhea, unspecified; I25.10 Atherosclerotic heart disease of native coronary artery without angina pectoris; E78.00 Pure hypercholesterolemia, unspecified; I10 Essential (primary) hypertension; I25.2 Old myocardial infarction; J44.9 Chronic obstructive pulmonary disease, unspecified; K21.9 Gastro-esophageal reflux disease without esophagitis; F41.9 Anxiety disorder, unspecified; F32.9 Major depressive disorder, single episode, unspecified; E11.9 Type 2 diabetes mellitus without complications; E66.9 Obesity, unspecified; F17.210 Nicotine dependence, cigarettes, uncomplicated; Z88.8 Allergy status to other drugs, medicaments and biological substances; Z88.5 Allergy status to narcotic agent; Z79.82 Long term (current) use of aspirin; Z79.899 Other long term (current) drug therapy; Z79.02 Long term (current) use of antithrombotics/antiplatelets; Z79.4 Long term (current) use of insulin; Z68.37 Body mass index [BMI] 37.0-37.9, adult
CPT/HCPCS: 36415; 80053; 83690; 85025; 96361; 96374; 96375; 99284; J1170; J2405; J7030

== ENCOUNTER 2020-02-05 21:36 | Emergency (ER) | payer MEDICAID ==
[2020-02-05 21:57] VITALS: BP 182/87; PULSE 71
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
== END 2020-02-05 22:29 | disposition home or self-care (01) ==
LOC: JP.ED 21:36
DX: H10.9 Unspecified conjunctivitis (principal); I10 Essential (primary) hypertension; E78.00 Pure hypercholesterolemia, unspecified; I25.10 Atherosclerotic heart disease of native coronary artery without angina pectoris; I25.2 Old myocardial infarction; J44.9 Chronic obstructive pulmonary disease, unspecified; K21.9 Gastro-esophageal reflux disease without esophagitis; E11.40 Type 2 diabetes mellitus with diabetic neuropathy, unspecified; E66.9 Obesity, unspecified; Z68.41 Body mass index [BMI] 40.0-44.9, adult; F17.210 Nicotine dependence, cigarettes, uncomplicated; Z86.73 Personal history of transient ischemic attack (TIA), and cerebral infarction without residual deficits; Z88.5 Allergy status to narcotic agent; Z88.6 Allergy status to analgesic agent; Z88.8 Allergy status to other drugs, medicaments and biological substances; Z79.82 Long term (current) use of aspirin; Z79.02 Long term (current) use of antithrombotics/antiplatelets; Z79.4 Long term (current) use of insulin; Z79.899 Other long term (current) drug therapy
CPT/HCPCS: 99283

== ENCOUNTER 2020-04-18 22:27 | Emergency (ER) | payer MEDICAID ==
[2020-04-18 22:39] VITALS: BP 143/65; PULSE 76
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
--- NOTE | 2020-04-19 09:06 | CR ---
Knee 3V Rt CLINICAL HISTORY: Chronic pain, no trauma FINDINGS: No acute fracture or dislocation is noted. There are no osseous lesions. There is moderate joint space narrowing. There is some meniscal calcification. Impression: [id number] osteoarthritic changes
== END 2020-04-19 00:35 | disposition home or self-care (01) ==
LOC: JP.ED 22:27
DX: M25.561 Pain in right knee (principal); I25.10 Atherosclerotic heart disease of native coronary artery without angina pectoris; E78.00 Pure hypercholesterolemia, unspecified; I10 Essential (primary) hypertension; I25.2 Old myocardial infarction; J44.9 Chronic obstructive pulmonary disease, unspecified; K21.9 Gastro-esophageal reflux disease without esophagitis; E11.40 Type 2 diabetes mellitus with diabetic neuropathy, unspecified; F41.9 Anxiety disorder, unspecified; F32.9 Major depressive disorder, single episode, unspecified; E66.9 Obesity, unspecified; Z68.37 Body mass index [BMI] 37.0-37.9, adult; F17.210 Nicotine dependence, cigarettes, uncomplicated; Z88.5 Allergy status to narcotic agent; Z88.8 Allergy status to other drugs, medicaments and biological substances; Z88.6 Allergy status to analgesic agent; Z79.82 Long term (current) use of aspirin; Z79.899 Other long term (current) drug therapy; Z79.02 Long term (current) use of antithrombotics/antiplatelets; Z79.4 Long term (current) use of insulin
CPT/HCPCS: 73562-26-RT; 73562-RT; 99283; 99283-25

== ENCOUNTER 2020-04-22 00:19 | Emergency (ER) | payer MEDICAID ==
[2020-04-22 00:59] VITALS: BP 150/67; PULSE 74
[2020-04-22] MEDS ORDERED: Ketorolac 60 MG/2 ML SDV IM ONE (01:34)
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
== END 2020-04-22 02:07 | disposition home or self-care (01) ==
LOC: JP.ED 00:19
DX: R07.81 Pleurodynia (principal); I25.10 Atherosclerotic heart disease of native coronary artery without angina pectoris; E78.00 Pure hypercholesterolemia, unspecified; I10 Essential (primary) hypertension; I25.2 Old myocardial infarction; J44.9 Chronic obstructive pulmonary disease, unspecified; K21.9 Gastro-esophageal reflux disease without esophagitis; F41.9 Anxiety disorder, unspecified; F32.9 Major depressive disorder, single episode, unspecified; E66.9 Obesity, unspecified; E11.40 Type 2 diabetes mellitus with diabetic neuropathy, unspecified; Z86.73 Personal history of transient ischemic attack (TIA), and cerebral infarction without residual deficits; Z68.37 Body mass index [BMI] 37.0-37.9, adult; Z88.6 Allergy status to analgesic agent; Z88.5 Allergy status to narcotic agent; Z88.8 Allergy status to other drugs, medicaments and biological substances; Z88.1 Allergy status to other antibiotic agents; Z79.82 Long term (current) use of aspirin; Z79.899 Other long term (current) drug therapy; Z79.4 Long term (current) use of insulin; Z79.02 Long term (current) use of antithrombotics/antiplatelets; Z95.5 Presence of coronary angioplasty implant and graft; F17.210 Nicotine dependence, cigarettes, uncomplicated
CPT/HCPCS: 96372; 99283; J1885

== ENCOUNTER 2020-07-08 22:20 | Emergency (ER) | payer MEDICAID ==
[2020-07-08 22:36] VITALS: BP 133/52; PULSE 78
[2020-07-08] MEDS ORDERED: Sulfamethoxazole/Trimethoprim 800-160 MG Tab PO ONE (22:59)
[2020-07-08] MEDS ORDERED: Phenazopyridine 95 MG Tab PO ONE (23:00)
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
== END 2020-07-08 23:14 | disposition home or self-care (01) ==
LOC: JP.ED 22:20
DX: N39.0 Urinary tract infection, site not specified (principal); I25.10 Atherosclerotic heart disease of native coronary artery without angina pectoris; E78.00 Pure hypercholesterolemia, unspecified; I10 Essential (primary) hypertension; I25.2 Old myocardial infarction; J44.9 Chronic obstructive pulmonary disease, unspecified; K21.9 Gastro-esophageal reflux disease without esophagitis; E11.40 Type 2 diabetes mellitus with diabetic neuropathy, unspecified; F41.9 Anxiety disorder, unspecified; F32.9 Major depressive disorder, single episode, unspecified; F17.210 Nicotine dependence, cigarettes, uncomplicated; E66.9 Obesity, unspecified; Z68.37 Body mass index [BMI] 37.0-37.9, adult; Z88.6 Allergy status to analgesic agent; Z88.8 Allergy status to other drugs, medicaments and biological substances; Z88.5 Allergy status to narcotic agent; Z79.82 Long term (current) use of aspirin; Z79.899 Other long term (current) drug therapy
CPT/HCPCS: 81001; 87086; 99283; A9270

== ENCOUNTER 2020-10-07 16:37 | Emergency (ER) | payer MEDICAID ==
[2020-10-07 17:15] VITALS: BP 177/76; PULSE 78
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
== END 2020-10-07 17:44 | disposition home or self-care (01) ==
LOC: JP.ED 16:37
DX: N30.90 Cystitis, unspecified without hematuria (principal); I25.10 Atherosclerotic heart disease of native coronary artery without angina pectoris; E78.00 Pure hypercholesterolemia, unspecified; I10 Essential (primary) hypertension; I25.2 Old myocardial infarction; J44.9 Chronic obstructive pulmonary disease, unspecified; K21.9 Gastro-esophageal reflux disease without esophagitis; E11.40 Type 2 diabetes mellitus with diabetic neuropathy, unspecified; D50.9 Iron deficiency anemia, unspecified; E66.9 Obesity, unspecified; Z68.35 Body mass index [BMI] 35.0-35.9, adult; Z72.0 Tobacco use; Z88.6 Allergy status to analgesic agent; Z88.5 Allergy status to narcotic agent; Z88.8 Allergy status to other drugs, medicaments and biological substances; Z79.82 Long term (current) use of aspirin; Z79.4 Long term (current) use of insulin; Z79.899 Other long term (current) drug therapy
CPT/HCPCS: 81001; 87086; 87088; 87186; 99283

== ENCOUNTER 2020-10-11 07:00 | Day surgery (SDC) | payer MEDICAID ==
[2020-10-11] MEDS ORDERED: Sodium Chloride 0.9% 10 ML Syringe FLUSH PRN (07:30)
[2020-10-11 08:29] VITALS: BP 142/81; PULSE 73
--- NOTE | 2020-10-11 09:48 | OR ---
DATE OF PROCEDURE: 10/11/2020 SURGEON: Irasema Silverio MD POSTOPERATIVE CARE: Postoperative care will be provided mainly at the [address] [place] [address] [facility] in conjunction with [facility]. PREOPERATIVE DIAGNOSIS: Cataract, right eye. POSTOPERATIVE DIAGNOSIS: Cataract, right eye. PROCEDURE: Phacoemulsification with intraocular lens placement, right eye. ANESTHESIA: Topical and intracameral. ESTIMATED BLOOD LOSS: Minimal. COMPLICATIONS: None. PATHOLOGY SPECIMENS: None. SURGICAL FINDINGS: None. INDICATION FOR PROCEDURE: The patient is a 55-year-old female with history of a visually significant cataract in the right eye, which interfered with activities of daily living. This consisted of a nuclear sclerosis cataract. Following careful discussion of the risks, benefits and alternatives to cataract extraction with intraocular lens placement including blindness and , the patient elected to proceed, and informed, written consent was obtained prior to the procedure. DESCRIPTION OF THE PROCEDURE: The patient was previously identified, and a saleem placed above the right eye. All sources, including the patient, indicated that the right eye was the correct eye. The patient was subsequently taken to the operating room where standard monitors were applied. The patient was then prepped and draped in the usual sterile fashion for ophthalmic surgery. Attention was first directed at the 12 o'clock position where a paracentesis port was fashioned. Shugar solution followed by Viscoat was instilled into the eye. Attention was then directed to the 8:30 position where a triplanar incision was made in a near-clear manner using a keratome. A continuous capsulorrhexis was then made using a combination of the cystotome and Utrata forceps. Hydrodissection was achieved using a balanced salt solution, and the lens rotated nicely. Phacoemulsification was then done using a modified [id number] technique without complication. Phaco time was 5.63 CDE. The remaining cortex was removed using the irrigation/aspiration handpiece. Provisc was then instilled into the eye. A Technis lens, model DCB00, at 25.0 diopters was then placed in the capsular bag using an Wood injector. The remaining viscoelastic was removed using the irrigation/aspiration forceps. All wounds were then checked and found to be watertight. The lid speculum and drapes were removed. Maxitrol ointment was placed in the patient's right eye, and the eye was shielded. The patient tolerated the procedure well. The patient was instructed to follow up tomorrow. All needle and sponge counts were correct at the end of the procedure. Irasema Silverio MD /[id number]
== END 2020-10-11 08:47 | disposition home or self-care (01) ==
LOC: JP.SDS 07:00
PROVIDERS: ATTEND Ophthalmology
DX: H25.11 Age-related nuclear cataract, right eye (principal); I10 Essential (primary) hypertension; E11.9 Type 2 diabetes mellitus without complications; Z88.6 Allergy status to analgesic agent; Z88.8 Allergy status to other drugs, medicaments and biological substances
CPT/HCPCS: 66984; 81025; V2632

== ENCOUNTER 2020-10-25 07:47 | Day surgery (SDC) | payer MEDICAID ==
[~2020-10-25 07:47] MED LIST: Sodium Chloride 0.9% 10 ML Syringe FLUSH PRN
[2020-10-25 09:32] VITALS: BP 126/78; PULSE 84
--- NOTE | 2020-10-25 14:40 | OR ---
DATE OF PROCEDURE: 10/25/2020 SURGEON: Irasema Silverio MD POSTOPERATIVE CARE: Postoperative care will be provided mainly at the [address] [place] [address] [facility] in conjunction with [facility]. PREOPERATIVE DIAGNOSIS: Cataract, left eye. POSTOPERATIVE DIAGNOSIS: Cataract, left eye. PROCEDURE: Phacoemulsification with intraocular lens placement, left eye. ANESTHESIA: Topical and intracameral. ESTIMATED BLOOD LOSS: Minimal. COMPLICATIONS: None. PATHOLOGY SPECIMENS: None. SURGICAL FINDINGS: None. INDICATION FOR PROCEDURE: The patient is a 55-year-old female with history of a visually significant cataract in the left eye, which interfered with activities of daily living. This consisted of a nuclear sclerosis cataract. Following careful discussion of the risks, benefits and alternatives to cataract extraction with intraocular lens placement including blindness and , the patient elected to proceed, and informed, written consent was obtained prior to the procedure. DESCRIPTION OF THE PROCEDURE: The patient was previously identified, and a saleem placed above the left eye. All sources, including the patient, indicated that the left eye was the correct eye. The patient was subsequently taken to the operating room where standard monitors were applied. The patient was then prepped and draped in the usual sterile fashion for ophthalmic surgery. Attention was first directed at the 12 o'clock position where a paracentesis port was fashioned. Shugar solution followed by Viscoat was instilled into the eye. Attention was then directed to the 8:30 position where a triplanar incision was made in a near-clear manner using a keratome. A continuous capsulorrhexis was then made using a combination of the cystotome and Utrata forceps. Hydrodissection was achieved using a balanced salt solution, and the lens rotated nicely. Phacoemulsification was then done using a modified [id number] technique without complication. Phaco time was 5.89 CDE. The remaining cortex was removed using the irrigation/aspiration handpiece. Provisc was then instilled into the eye. A Technis lens, model DCB00, at 25.0 Diopters was then placed in the capsular bag using an Cyr injector. The remaining viscoelastic was removed using the irrigation/aspiration forceps. All wounds were then checked and found to be watertight. The lid speculum and drapes were removed. Maxitrol ointment was placed in the patient's left eye, and the eye was shielded. The patient tolerated the procedure well. The patient was instructed to follow up tomorrow. All needle and sponge counts were correct at the end of the procedure. There were no surgical findings. Irasema Silverio MD /[id number]
== END 2020-10-25 09:40 | disposition home or self-care (01) ==
LOC: JP.SDS 07:47
PROVIDERS: ATTEND Ophthalmology
DX: E11.36 Type 2 diabetes mellitus with diabetic cataract (principal); H25.12 Age-related nuclear cataract, left eye; I10 Essential (primary) hypertension; I25.10 Atherosclerotic heart disease of native coronary artery without angina pectoris; E78.00 Pure hypercholesterolemia, unspecified; Z88.6 Allergy status to analgesic agent; Z88.8 Allergy status to other drugs, medicaments and biological substances
CPT/HCPCS: 66984; 82962; V2632

== ENCOUNTER 2021-05-04 17:41 | Emergency (ER) | payer MEDICAID ==
[2021-05-04 18:04] VITALS: BP 145/70; PULSE 84
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
[2021-05-04] MEDS ORDERED: Acetaminophen/HYDROcodone 325-5 MG Tab PO ONE (18:20)
== END 2021-05-04 18:35 | disposition home or self-care (01) ==
LOC: JP.ED 17:41
DX: H60.12 Cellulitis of left external ear (principal); E78.00 Pure hypercholesterolemia, unspecified; I25.10 Atherosclerotic heart disease of native coronary artery without angina pectoris; E11.40 Type 2 diabetes mellitus with diabetic neuropathy, unspecified; I10 Essential (primary) hypertension; I25.2 Old myocardial infarction; J44.9 Chronic obstructive pulmonary disease, unspecified; K21.9 Gastro-esophageal reflux disease without esophagitis; E66.9 Obesity, unspecified; Z68.36 Body mass index [BMI] 36.0-36.9, adult; Z86.73 Personal history of transient ischemic attack (TIA), and cerebral infarction without residual deficits; Z95.5 Presence of coronary angioplasty implant and graft; Z88.5 Allergy status to narcotic agent; Z88.8 Allergy status to other drugs, medicaments and biological substances; Z79.82 Long term (current) use of aspirin; Z79.02 Long term (current) use of antithrombotics/antiplatelets; Z79.4 Long term (current) use of insulin; Z79.899 Other long term (current) drug therapy
CPT/HCPCS: 99283

== ENCOUNTER 2021-06-03 05:08 | Emergency (ER) | payer MEDICAID ==
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
[2021-06-03] MEDS ORDERED: Aspirin 81 MG Tab.Chew PO ONE ×2 (06:08→06:20)
--- NOTE | 2021-06-03 06:47 | CRLCR ---
For Patients: As a result of the Century Cures Act, medical imaging exams and procedure reports are released immediately into your electronic medical record. You may view this report before your referring provider. If you have questions, please contact your health care provider. Indication: Shortness of breath Comparison: Two-view chest March 31, 2019 Technique: Single AP view chest Findings: There is hyperinflation and chronic interstitial change. There are mildly increased interstitial markings likely representing pulmonary vascular congestion. Calcified granuloma in the left lung base is appreciated. There is no dense consolidation or effusion. There is no pneumothorax. Stable cardiac silhouette. The bony thorax is grossly intact. Impression: Hyperinflation and chronic interstitial changes with mild interstitial prominence likely representing pulmonary vascular congestion. No dense consolidation. Dictated by Jamshid Hernandez MD @ 06/03/2021 6:44:55 AM (Electronically Signed)
[2021-06-03] MEDS ORDERED: Ondansetron 4 MG Tab.DIS PO ONE (06:52)
[2021-06-03] MEDS ORDERED: Nitroglycerin 0.4 MG Tab.SL SL PRN (06:53)
[2021-06-03] MEDS ORDERED: Ketorolac 30 MG/ML SDV IVPUSH ONE (07:01)
[2021-06-03 08:50] VITALS: BP 146/67; PULSE 75
== END 2021-06-03 08:59 | disposition home or self-care (01) ==
LOC: JP.ED 05:08
DX: R07.89 Other chest pain (principal); I25.10 Atherosclerotic heart disease of native coronary artery without angina pectoris; E78.00 Pure hypercholesterolemia, unspecified; I10 Essential (primary) hypertension; I25.2 Old myocardial infarction; J44.9 Chronic obstructive pulmonary disease, unspecified; E10.40 Type 1 diabetes mellitus with diabetic neuropathy, unspecified; Z86.73 Personal history of transient ischemic attack (TIA), and cerebral infarction without residual deficits; E66.9 Obesity, unspecified; Z68.36 Body mass index [BMI] 36.0-36.9, adult; Z88.5 Allergy status to narcotic agent; Z88.8 Allergy status to other drugs, medicaments and biological substances; Z79.82 Long term (current) use of aspirin; Z79.899 Other long term (current) drug therapy; Z79.4 Long term (current) use of insulin
CPT/HCPCS: 36415; 71045; 80053; 83880; 84443; 84484; 85025; 93005; 96374; 99285; A9270; J1885

== ENCOUNTER 2021-07-23 22:20 | Emergency (ER) | payer MEDICAID ==
[2021-07-23 23:02] VITALS: BP 154/58; PULSE 86
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
[2021-07-23 23:38] LABS: CORONAVIRUS COVID-19 NAA POSITIVE (NEGATIVE)
[2021-07-23] MEDS ORDERED: Ketorolac 30 MG/ML SDV IM ONE (23:50)
[2021-07-24] MEDS ORDERED: Ondansetron 4 MG Tab.DIS PO ONE (00:06)
[2021-07-24] MEDS ORDERED: diphenhydrAMINE 50 MG/ML SDV IVPUSH PRN (08:00)
[2021-07-24] MEDS ORDERED: Famotidine 20 MG/2 ML SDV IV PRN (08:00)
[2021-07-24] MEDS ORDERED: EPINEPHrine 1 MG/ML SDV IM PRN (08:00)
[2021-07-24] MEDS ORDERED: methylPREDNISolone Sodium Succinate 125 MG/2 ML SDV IVPUSH PRN (08:00)
--- NOTE | 2021-07-24 09:21 | CR ---
CHEST: Portable 07/23/2021 at 11:52 PM CLINICAL HISTORY:SOB COMPARISON:06/03/2021 FINDINGS: Heart is mildly enlarged. Pulmonary vascularity is normal. No infiltrates are seen. There nodular calcifications in both perihilar regions. Impression: No acute cardiopulmonary process Previous granulomatous exposure Cardiomegaly
== END 2021-07-24 00:30 | disposition home or self-care (01) ==
LOC: JP.ED 22:20
DX: U07.1 COVID-19 (principal); I25.10 Atherosclerotic heart disease of native coronary artery without angina pectoris; E78.00 Pure hypercholesterolemia, unspecified; I10 Essential (primary) hypertension; I25.2 Old myocardial infarction; E10.40 Type 1 diabetes mellitus with diabetic neuropathy, unspecified; E66.9 Obesity, unspecified; K21.9 Gastro-esophageal reflux disease without esophagitis; Z68.37 Body mass index [BMI] 37.0-37.9, adult; Z95.5 Presence of coronary angioplasty implant and graft; Z88.5 Allergy status to narcotic agent; Z88.8 Allergy status to other drugs, medicaments and biological substances; Z79.82 Long term (current) use of aspirin; Z79.4 Long term (current) use of insulin; Z79.899 Other long term (current) drug therapy; Z86.73 Personal history of transient ischemic attack (TIA), and cerebral infarction without residual deficits; Z72.0 Tobacco use
CPT/HCPCS: 0241U; 36415; 71045; 80053; 85025; 85379; 86140; 96372; 99283; 99285; A9270; J1885

== ENCOUNTER 2021-08-21 03:05 | Emergency (ER) | payer MEDICAID ==
[2021-08-21] MEDS ORDERED: Cyclobenzaprine 10 MG Tab PO ONE (03:38)
[2021-08-21 04:14] VITALS: BP 168/87; PULSE 83
== END 2021-08-21 04:23 | disposition home or self-care (01) ==
LOC: JP.ED 03:05
DX: M54.41 Lumbago with sciatica, right side (principal); G89.4 Chronic pain syndrome; I25.10 Atherosclerotic heart disease of native coronary artery without angina pectoris; E78.00 Pure hypercholesterolemia, unspecified; I10 Essential (primary) hypertension; I25.2 Old myocardial infarction; J44.9 Chronic obstructive pulmonary disease, unspecified; K21.9 Gastro-esophageal reflux disease without esophagitis; E10.40 Type 1 diabetes mellitus with diabetic neuropathy, unspecified; D50.9 Iron deficiency anemia, unspecified; E66.9 Obesity, unspecified; Z68.37 Body mass index [BMI] 37.0-37.9, adult; Z88.6 Allergy status to analgesic agent; Z88.5 Allergy status to narcotic agent; Z88.8 Allergy status to other drugs, medicaments and biological substances; Z79.82 Long term (current) use of aspirin; Z79.84 Long term (current) use of oral hypoglycemic drugs; Z79.899 Other long term (current) drug therapy
CPT/HCPCS: 99283; A9270

== ENCOUNTER 2021-09-05 22:56 | Emergency (ER) | payer MEDICAID ==
[2021-09-06 00:13] VITALS: BP 172/70; PULSE 85
== END 2021-09-05 23:43 | disposition home or self-care (01) ==
LOC: JP.ED 22:56
DX: R20.2 Paresthesia of skin (principal); F41.9 Anxiety disorder, unspecified; I25.10 Atherosclerotic heart disease of native coronary artery without angina pectoris; I10 Essential (primary) hypertension; I25.2 Old myocardial infarction; J44.9 Chronic obstructive pulmonary disease, unspecified; E10.40 Type 1 diabetes mellitus with diabetic neuropathy, unspecified; Z88.5 Allergy status to narcotic agent; Z88.8 Allergy status to other drugs, medicaments and biological substances; Z79.82 Long term (current) use of aspirin; Z79.899 Other long term (current) drug therapy; Z79.84 Long term (current) use of oral hypoglycemic drugs
CPT/HCPCS: 93005; 99282; 99284-25

== ENCOUNTER 2021-09-09 00:18 | Emergency (ER) | payer MEDICAID ==
[2021-09-09] MEDS ORDERED: Sodium Chloride 0.9% 10 ML Syringe FLUSH PRN (00:30)
[2021-09-09] MEDS ORDERED: Iopamidol 755 Mg/ML 100 ML Bottle IV STA (00:55)
[2021-09-09] MEDS ORDERED: Sodium Chloride 0.9% 75 ML IV STA (00:55)
[2021-09-09 02:48] LABS: CORONAVIRUS COVID-19 NAA NEGATIVE (NEGATIVE)
[2021-09-09] MEDS ORDERED: Ondansetron 4 MG/2 ML SDV IVPUSH ONE (03:39)
[2021-09-09] MEDS ORDERED: Ketorolac 30 MG/ML SDV IVPUSH ONE (04:53)
[2021-09-09] MEDS ORDERED: Metoclopramide 10 MG Tab PO ONE (08:06)
[2021-09-09] MEDS ORDERED: diphenhydrAMINE 25 MG/10 ML Cup PO ONE (08:06)
[2021-09-09] MEDS ORDERED: Clopidogrel 75 MG Tab PO ONE (12:48)
[2021-09-09] MEDS ORDERED: Aspirin 81 MG Tab.Chew PO ONE (12:48)
[2021-09-09] MEDS ORDERED: Metoprolol Tartrate 25 MG Tab PO ONE (12:49)
[2021-09-09] MEDS ORDERED: Cetirizine 10 MG Tab PO ONE (12:51)
[2021-09-09 15:27] VITALS: PULSE 74
[2021-09-09 16:05] VITALS: BP 127/40
[2021-09-09] MEDS ORDERED: Glucagon,Human Recombinant 1 MG Vial IM PRN (16:52)
[2021-09-09] MEDS ORDERED: Insulin Lispro 100 Units/ML 3 ML Vial SUBCUT ONE (16:52)
[2021-09-09] MEDS ORDERED: 50% Dextrose in Water 50 ML Syringe IVPUSH PRN (16:52)
[2021-09-09] MEDS ORDERED: metFORMIN 500 MG Tab PO SCH (17:00)
[2021-09-10] MEDS ORDERED: Pantoprazole 40 MG Delayed-Release Granules 1 Packet PO SCH (07:30)
== END 2021-09-09 18:48 | disposition home or self-care (01) ==
LOC: JP.ED 00:18
DX: I63.9 Cerebral infarction, unspecified (principal); I25.10 Atherosclerotic heart disease of native coronary artery without angina pectoris; F17.210 Nicotine dependence, cigarettes, uncomplicated; I10 Essential (primary) hypertension; E78.00 Pure hypercholesterolemia, unspecified; J44.9 Chronic obstructive pulmonary disease, unspecified; I25.2 Old myocardial infarction; K21.9 Gastro-esophageal reflux disease without esophagitis; Z20.822 Contact with and (suspected) exposure to COVID-19; Z88.8 Allergy status to other drugs, medicaments and biological substances; Z88.1 Allergy status to other antibiotic agents; Z88.0 Allergy status to penicillin; Z88.5 Allergy status to narcotic agent; Z79.82 Long term (current) use of aspirin; Z79.899 Other long term (current) drug therapy
CPT/HCPCS: 0241U; 36415; 70450; 70496; 70498; 70551; 80053; 82947; 84484; 85025; 85610; 85730; 86140; 93005; 93010; 96374; 96375; 99283; 99285; A9270; J1885; J2405; Q9967

== ENCOUNTER 2021-10-26 00:11 | Emergency (ER) | payer MEDICAID ==
[2021-10-26 00:33] VITALS: BP 145/64; PULSE 89
[2021-10-26] MEDS ORDERED: Ondansetron 4 MG Tab.DIS PO ONE (00:58)
[2021-10-26] MEDS ORDERED: fentaNYL 100 MCG/2 ML SDV IM ONE (00:58)
== END 2021-10-26 02:02 | disposition home or self-care (01) ==
LOC: JP.ED 00:11
DX: K59.01 Slow transit constipation (principal); R10.10 Upper abdominal pain, unspecified; I10 Essential (primary) hypertension; I25.10 Atherosclerotic heart disease of native coronary artery without angina pectoris; J44.9 Chronic obstructive pulmonary disease, unspecified; I25.2 Old myocardial infarction; K21.9 Gastro-esophageal reflux disease without esophagitis; E10.9 Type 1 diabetes mellitus without complications; E66.9 Obesity, unspecified; Z68.38 Body mass index [BMI] 38.0-38.9, adult; Z87.891 Personal history of nicotine dependence; Z79.899 Other long term (current) drug therapy; Z88.8 Allergy status to other drugs, medicaments and biological substances; Z88.5 Allergy status to narcotic agent; Z88.6 Allergy status to analgesic agent
CPT/HCPCS: 36415; 74176; 80053; 83605; 83690; 85025; 86140; 96372; 99282; 99284-25; J3010; Q0162

== ENCOUNTER 2022-02-25 03:57 | Emergency (ER) | payer MEDICAID ==
[2022-02-25 04:12] VITALS: BP 142/55; PULSE 84
[2022-02-25] MEDS ORDERED: methylPREDNISolone Sodium Succinate 125 MG/2 ML SDV IV ONE (04:13)
[2022-02-25] MEDS ORDERED: Sodium Chloride 0.9% 10 ML Syringe FLUSH PRN ×2 (04:13)
[2022-02-25] MEDS ORDERED: EPINEPHrine 1 MG/ML SDV IM ONE (04:13)
== END 2022-02-25 05:49 | disposition home or self-care (01) ==
LOC: JP.ED 03:57
DX: T78.40XA Allergy, unspecified, initial encounter (principal); E78.00 Pure hypercholesterolemia, unspecified; I10 Essential (primary) hypertension; J44.9 Chronic obstructive pulmonary disease, unspecified; Z79.899 Other long term (current) drug therapy; E10.8 Type 1 diabetes mellitus with unspecified complications; Z79.82 Long term (current) use of aspirin; Z88.0 Allergy status to penicillin; Z88.8 Allergy status to other drugs, medicaments and biological substances
CPT/HCPCS: 96372; 96374; 99283; J0171; J2930; J3490

== ENCOUNTER 2022-07-01 01:49 | Emergency (ER) | payer MEDICAID ==
[2022-07-01] MEDS ORDERED: fentaNYL 100 MCG/2 ML SDV IM ONE (02:17)
[2022-07-01 02:44] VITALS: BP 135/64; PULSE 84
[2022-07-01 02:49] LABS: ESTIMATED GFR 101 mL/min (>60)
== END 2022-07-01 04:07 | disposition home or self-care (01) ==
LOC: JP.ED 01:49
DX: M79.604 Pain in right leg (principal); M79.605 Pain in left leg; J44.9 Chronic obstructive pulmonary disease, unspecified; E78.00 Pure hypercholesterolemia, unspecified; I25.10 Atherosclerotic heart disease of native coronary artery without angina pectoris; I10 Essential (primary) hypertension; E10.9 Type 1 diabetes mellitus without complications; E66.9 Obesity, unspecified; Z68.38 Body mass index [BMI] 38.0-38.9, adult; Z88.6 Allergy status to analgesic agent; Z88.5 Allergy status to narcotic agent; Z88.8 Allergy status to other drugs, medicaments and biological substances; Z79.899 Other long term (current) drug therapy; Z79.82 Long term (current) use of aspirin; Z79.84 Long term (current) use of oral hypoglycemic drugs; Z90.49 Acquired absence of other specified parts of digestive tract
CPT/HCPCS: 36415; 80053; 85025; 86140; 93970; 96372; 99284; J3010

== ENCOUNTER 2022-08-25 19:10 | Emergency (ER) | payer MEDICAID ==
[2022-08-25] MEDS ORDERED: Sodium Chloride 0.9% 1,000 ML IV ONE (19:28)
[2022-08-25 20:04] LABS: ESTIMATED GFR 75 mL/min (>60)
[2022-08-25] MEDS ORDERED: HYDROmorphone 1 MG/ML Syringe IVPUSH ONE (20:11)
[2022-08-25] MEDS ORDERED: Ondansetron 4 MG/2 ML SDV IVPUSH ONE (20:12)
[2022-08-25] MEDS ORDERED: HYDROmorphone 0.5 MG/0.5 ML Syringe IVPUSH ONE (21:58)
[2022-08-25 22:00] VITALS: BP 136/57; PULSE 79
== END 2022-08-25 22:55 | disposition home or self-care (01) ==
LOC: JP.ED 19:10
DX: S39.011A Strain of muscle, fascia and tendon of abdomen, initial encounter (principal); J44.9 Chronic obstructive pulmonary disease, unspecified; E11.9 Type 2 diabetes mellitus without complications; E78.00 Pure hypercholesterolemia, unspecified; I25.10 Atherosclerotic heart disease of native coronary artery without angina pectoris; E66.9 Obesity, unspecified; Z68.30 Body mass index [BMI] 30.0-30.9, adult; Z79.4 Long term (current) use of insulin; Z86.73 Personal history of transient ischemic attack (TIA), and cerebral infarction without residual deficits; Z79.82 Long term (current) use of aspirin; Z79.899 Other long term (current) drug therapy; Z68.45 Body mass index [BMI] 70 or greater, adult
CPT/HCPCS: 36415; 74176; 80053; 81001; 82150; 83690; 84484; 85025; 96361; 96374; 96375; 96376; 99282; 99285-25; J1170; J2405; J7030

== ENCOUNTER 2023-05-19 12:48 | Emergency (ER) | payer MEDICAID ==
[2023-05-19] MEDS ORDERED: Sodium Chloride 0.9% 10 ML Syringe FLUSH PRN (12:51)
[2023-05-19 13:07] LABS: BASOPHILS ABSOLUTE AUTO 0.09 K/uL (0.00-0.10); BASOPHILS PERCENT AUTO 0.9 % (0.1-1.3); EOSINOPHILS ABSOLUTE AUTO 0.38 K/uL (0.00-0.40); EOSINOPHILS PERCENT AUTO 3.9 % (0.0-5.4); HEMATOCRIT 45.6 % (34.3-46.0); HEMOGLOBIN 15.1 g/dL (11.2-15.5); IMMATURE GRAN ABSOLUTE AUTO 0.09 K/uL (0.00-0.23); IMMATURE GRAN PERCENT AUTO 0.9 % (0.0-0.7); LYMPHOCYTES ABSOLUTE AUTO 2.33 K/uL (0.8-3.3); LYMPHOCYTES PERCENT AUTO 24.1 % (11.4-47.7); MEAN CORPUSCULAR HEMOGLOBIN 29.5 pg (31.6-35.5); MEAN CORPUSCULAR HGB CONC 33.1 g/dL (31.6-35.5); MEAN CORPUSCULAR VOLUME 89.2 fL (81.4-99.0); MONOCYTES ABSOLUTE AUTO 0.84 K/uL (0.20-0.90); MONOCYTES PERCENT AUTO 8.7 % (3.3-12.6); NEUTROPHILS ABSOLUTE AUTO 5.92 K/uL (1.0-7.6); NEUTROPHILS PERCENT AUTO 61.5 % (40.0-78.1); PLATELET COUNT,PLT 318 K/uL (130-375); RED BLOOD CELL COUNT 5.11 M/uL (3.77-5.24); WHITE BLOOD CELL COUNT,WBC 9.7 K/uL (3.2-11.0)
[2023-05-19] MEDS ORDERED: Ondansetron 4 MG/2 ML SDV IVPUSH ONE (13:25)
[2023-05-19] MEDS ORDERED: Iopamidol 755 Mg/ML 100 ML Bottle IV ONE (13:25)
[2023-05-19 13:27] LABS: PTT,PARTIAL THROMBOPLSTIN TIME 25.8 sec (21.8-27.3)
[2023-05-19] MEDS ORDERED: Sodium Chloride 0.9% 75 ML IV SCH (13:30)
[2023-05-19 13:38] LABS: A/G RATIO 1.2 (1.2-2.2); ALANINE AMINOTRANSFERASE,ALT 47 U/L (12-78); ALBUMIN 4.2 g/dL (3.4-5.0); ALKALINE PHOSPHATASE 80 U/L (46-116); ANION GAP 12.6 mmol/L (5.0-14.0); ASPARTATE AMNIOTRANSFERASE,AST 21 U/L (15-37); BILIRUBIN TOTAL 0.4 mg/dL (0.2-1.0); BLOOD UREA NITROGEN,BUN 15 mg/dL (7-18); CALCIUM 9.4 mg/dL (8.5-10.1); CARBON DIOXIDE,CO2 26 mmol/L (21-32); CHLORIDE,CL 102 mmol/L (100-108); CREATININE 0.6 mg/dL (0.6-1.0); ESTIMATED GFR 105 mL/min (>60); GLUCOSE RANDOM 167 mg/dL (74-106); POTASSIUM,K 3.8 mmol/L (3.6-5.2); PROTEIN TOTAL,TP 7.6 g/dL (6.4-8.2); SODIUM,NA 141 mmol/L (140-148)
[2023-05-19 13:39] LABS: TSH ULTRASENSITIVE 3.531 uIU/mL (0.358-3.740)
[2023-05-19 14:20] LABS: APPEARANCE,URINE SLIGHTLY CLOUDY (CLEAR); BILIRUBIN,URINE NEGATIVE (NEGATIVE); COLOR,URINE YELLOW (YELLOW); GLUCOSE,URINE 500 mg/dL (NEGATIVE); KETONES,URINE NEGATIVE (NEGATIVE); LEUKOCYTE ESTERASE,URINE NEGATIVE (NEGATIVE); NITRITE,URINE NEGATIVE (NEGATIVE); OCCULT BLOOD,URINE NEGATIVE (NEGATIVE); PROTEIN,URINE NEGATIVE (NEGATIVE); UROBILINOGEN,URINE 0.2 EU/dL (0.2-1.0)
[2023-05-19 14:26] LABS: AMPHETAMINES SCREEN, URINE NEGATIVE (NEGATIVE); BARBITURATE SCREEN,URINE PRESUMPTIVE POSITIVE (NEGATIVE); BENZODIAZEPINES SCREEN,URINE NEGATIVE (NEGATIVE); METHADONE SCREEN, URINE NEGATIVE (NEGATIVE); METHAMPHETAMINES SCREEN, URINE NEGATIVE (NEGATIVE); OXYCODONE SCREEN,URINE NEGATIVE (NEGATIVE); PROPOXYPHENE SCREEN,URINE NEGATIVE (NEGATIVE); THC SCREEN,URINE 50 NG/ML NEGATIVE (NEGATIVE)
[2023-05-19 14:27] LABS: AMORPHOUS SEDIMENT,URINE NOT SEEN; BACTERIA,URINE FEW; EPITHELIAL CELLS,URINE NOT SEEN; MUCUS,URINE NOT SEEN; RBC,URINE 0-5 (0-5)
[2023-05-19] MEDS ORDERED: Prochlorperazine 10 MG/2 ML SDV IVPUSH ONE (14:30)
[2023-05-19 14:48] VITALS: BP 151/68; PULSE 73
== END 2023-05-19 15:32 | disposition home or self-care (01) ==
LOC: JP.ED 12:48
DX: I63.9 Cerebral infarction, unspecified (principal); E11.40 Type 2 diabetes mellitus with diabetic neuropathy, unspecified; I25.10 Atherosclerotic heart disease of native coronary artery without angina pectoris; E78.00 Pure hypercholesterolemia, unspecified; I10 Essential (primary) hypertension; J44.9 Chronic obstructive pulmonary disease, unspecified; K21.9 Gastro-esophageal reflux disease without esophagitis; I25.2 Old myocardial infarction; Z86.16 Personal history of COVID-19; Z20.822 Contact with and (suspected) exposure to COVID-19; Z88.6 Allergy status to analgesic agent; Z88.5 Allergy status to narcotic agent; Z88.8 Allergy status to other drugs, medicaments and biological substances; Z79.82 Long term (current) use of aspirin; Z79.4 Long term (current) use of insulin; Z79.899 Other long term (current) drug therapy
CPT/HCPCS: 36415; 70450; 70496; 70498; 80053; 80305; 80307; 81001; 82947; 83735; 84443; 84484; 85025; 85610; 85730; 87635; 93005; 96374; 96375; 99285; J0780; J2405; J3490; Q9967; U0002

== ENCOUNTER 2023-07-14 17:57 | Emergency (ER) | payer MEDICAID ==
[2023-07-14 18:24] VITALS: PULSE 85
[2023-07-14 19:01] LABS: CORONAVIRUS COVID-19 NAA POSITIVE (NEGATIVE); INFLUENZA A NAA NEGATIVE (NEGATIVE); INFLUENZA B NAA NEGATIVE (NEGATIVE); RESPIRATORY SYNCYTIAL VIR NAA NEGATIVE (NEGATIVE)
[2023-07-14 19:13] LABS: BASOPHILS ABSOLUTE AUTO 0.03 K/uL (0.00-0.10); BASOPHILS PERCENT AUTO 0.4 % (0.1-1.3); EOSINOPHILS ABSOLUTE AUTO 0.08 K/uL (0.00-0.40); EOSINOPHILS PERCENT AUTO 0.9 % (0.0-5.4); HEMATOCRIT 47.2 % (34.3-46.0); HEMOGLOBIN 15.8 g/dL (11.2-15.5); IMMATURE GRAN ABSOLUTE AUTO 0.07 K/uL (0.00-0.23); IMMATURE GRAN PERCENT AUTO 0.8 % (0.0-0.7); LYMPHOCYTES PERCENT AUTO 19.9 % (11.4-47.7); MEAN CORPUSCULAR HEMOGLOBIN 29.4 pg (31.6-35.5); MEAN CORPUSCULAR HGB CONC 33.5 g/dL (31.6-35.5); MEAN CORPUSCULAR VOLUME 87.9 fL (81.4-99.0); MONOCYTES ABSOLUTE AUTO 0.89 K/uL (0.20-0.90); MONOCYTES PERCENT AUTO 10.4 % (3.3-12.6); NEUTROPHILS ABSOLUTE AUTO 5.79 K/uL (1.0-7.6); NEUTROPHILS PERCENT AUTO 67.6 % (40.0-78.1); PLATELET COUNT,PLT 279 K/uL (130-375); RED BLOOD CELL COUNT 5.37 M/uL (3.77-5.24); WHITE BLOOD CELL COUNT,WBC 8.6 K/uL (3.2-11.0)
[2023-07-14] MEDS ORDERED: Ondansetron 4 MG/2 ML SDV IVPUSH ONE (19:25)
[2023-07-14 19:35] LABS: BLOOD UREA NITROGEN,BUN 12 mg/dL (7-18); C-REACTIVE PROTEIN 3.28 mg/dL (<0.50); CALCIUM 9.9 mg/dL (8.5-10.1); CARBON DIOXIDE,CO2 22 mmol/L (21-32); CHLORIDE,CL 97 mmol/L (100-108); CREATININE 0.6 mg/dL (0.6-1.0); ESTIMATED GFR 105 mL/min (>60); GLUCOSE RANDOM 180 mg/dL (74-106); POTASSIUM,K 3.8 mmol/L (3.6-5.2); SODIUM,NA 135 mmol/L (140-148)
[2023-07-14 19:36] LABS: ANION GAP 19.8 mmol/L (5.0-14.0); TROPONIN I HIGH SENSITIVITY < 4.0 pg/mL (<=60.3)
[2023-07-14] MEDS ORDERED: Sodium Chloride 0.9% 1,000 ML IV ONE (19:39)
[2023-07-14 21:21] VITALS: BP 155/62
== END 2023-07-14 21:20 | disposition home or self-care (01) ==
LOC: JP.ED 17:57
DX: U07.1 COVID-19 (principal); I10 Essential (primary) hypertension; K21.9 Gastro-esophageal reflux disease without esophagitis; I25.10 Atherosclerotic heart disease of native coronary artery without angina pectoris; J44.9 Chronic obstructive pulmonary disease, unspecified; E78.00 Pure hypercholesterolemia, unspecified; E10.9 Type 1 diabetes mellitus without complications; E66.9 Obesity, unspecified; Z68.37 Body mass index [BMI] 37.0-37.9, adult; Z86.16 Personal history of COVID-19; Z90.49 Acquired absence of other specified parts of digestive tract; Z88.5 Allergy status to narcotic agent; Z88.8 Allergy status to other drugs, medicaments and biological substances; Z79.899 Other long term (current) drug therapy; Z79.82 Long term (current) use of aspirin; Z79.84 Long term (current) use of oral hypoglycemic drugs; Z79.4 Long term (current) use of insulin
CPT/HCPCS: 0241U; 36415; 71045; 80048; 83605; 84484; 85025; 86140; 93005; 96361; 96374; 99285-25; J2405; J7030

== ENCOUNTER 2023-11-13 06:39 | Day surgery (SDC) | payer MEDICAID ==
[2023-11-13] MEDS ORDERED: fentaNYL 50 MCG/ML SDV ONE (07:29)
[2023-11-13] MEDS ORDERED: Propofol 200 MG/20 ML SDV ONE (07:29)
[2023-11-13] MEDS ORDERED: Midazolam 1 MG/ML 2 ML SDV ONE (07:29)
[2023-11-13] MEDS: Sodium Chloride 0.9% 1,000 ML IV SCH (08:01)
[2023-11-13 09:22] VITALS: BP 131/62; PULSE 71
== END 2023-11-13 10:25 | disposition home or self-care (01) ==
LOC: JP.SDS 06:39
PROVIDERS: ATTEND Surgery
DX: K21.00 Gastro-esophageal reflux disease with esophagitis, without bleeding (principal); K22.89 Other specified disease of esophagus; J44.9 Chronic obstructive pulmonary disease, unspecified; I10 Essential (primary) hypertension; I25.10 Atherosclerotic heart disease of native coronary artery without angina pectoris; E66.9 Obesity, unspecified; E11.9 Type 2 diabetes mellitus without complications
CPT/HCPCS: 43239; 82947; J2250; J2704; J3010; J7030; 88305